=== PATIENT | female | born 1950 | race African-American/Black ===

== ENCOUNTER 2024-11-10 00:33 | Emergency (ER) | payer BC, OTHER, SELFPAY ==
[2024-11-10] VITALS (29 sets, daily range): BP systolic 134–164; BP diastolic 67–82; PULSE 88–117; RESP 14–30; TEMP 36.4–36.6; O2SAT 91–100
--- NOTE | ~2024-11-10 | XR_ITS ---
EXAMINATION: XR chest 1V DATE: 11/10/2024 02:27 INDICATION: Cough TECHNIQUE: frontal view of the chest was obtained. COMPARISON: Chest CT dated 11/10/2024 FINDINGS: The lungs are clear with no focal airspace opacities, pulmonary edema, pleural effusion or pneumothor ax. The cardiomediastinal silhouette is normal. IMPRESSION: 1. No acute cardiopulmonary disease. Reviewed, dictated and finalized at location A.
--- NOTE | ~2024-11-10 | CT_ITS ---
EXAMINATION: CT diagnostic chest wo con DATE: 11/10/2024 05:04 INDICATION: shortness of breath. COUGH X 1 DAY. TECHNIQUE: Computed tomography (CT) of the chest was performed without intravenous contrast. Addition al 3D reconstructions utilizing coronal maximum intensity projection (MIP) were performed. Automated exposure control and iterative reconstruction technique were employed. The dose-length product was 17 3.12 mGy-cm. COMPARISON: None FINDINGS: There is mild bronchial wall thickening which could be seen with bronchitis or reactive airway diseas e/asthma. Mild discoid atelectasis at the anterobasilar right lower lobe. No pneumonia, pulmonary mimi ma, pleural effusion or pneumothorax. 4 mm likely intrafissural lymph node along the right minor fiss ure. Small calcified right upper lobe nodule consistent with old granulomatous disease. There is diff use mild wall thickening of the esophagus which could be seen with esophagitis. No pathologically enl arged thoracic lymphadenopathy. Visualized upper abdomen is unremarkable. Moderate to severe thoracic spondylosis. IMPRESSION: 1. Diffuse mild bronchial wall thickening which could be seen with bronchitis or reactive airway dise ase/asthma without pneumonia. 2. Diffuse mild wall thickening of the esophagus which could be seen with esophagitis such as in the setting of reflux. Reviewed, dictated and finalized at location A. IMPRESSION: 1. Diffuse mild bronchial wall thickening which could be seen with bronchitis o r reactive airway disease/asthma without pneumonia. 2. Diffuse mild wall thickening of the esophagus which could be seen with esoph agitis such as in the setting of reflux.
--- NOTE | 2024-11-10 00:40 | ECG_ITS ---
Test Date: 2024-11-10 00:53:19 Measurements Intervals [place] Rate: 113 P: 64 NM: 132 QRS: 98 QRSD: 100 T: 45 QT: 348 QTc: 478 Interpretive Statements SINUS TACHYCARDIA RIGHT AXIS DEVIATION CANNOT R/O SEPTAL INFARCT, AGE INDETERMINATE BORDERLINE ST-T WAVE ABNORMALITY- INFERIOR LEADS BASELINE ARTIFACT- AVR, AVL, AVF ABNORMAL ECG No previous ECG available for comparison Electronically Signed On 11-10-2024 07:27:35 CDT by Luis Miguel Hoyt D.O.
--- NOTE | 2024-11-10 00:44 | ED.SOB ---
HPI - SOB/Dyspnea General Chief Complaint: Shortness of Breath/Dyspnea Stated Complaint: shortness of breathe Time Seen by Provider: 11/10/24 00:39 Source: patient Mode of arrival: EMS Limitations: no limitations History of Present Illness HPI Narrative: Patient is a 74-year-old female with acute onset shortness of breath and respiratory distress at the nursing facility this evening. Patient has COPD. She has been having a productive cough and some phlegm. Pneumonia is also considered. she was hypoxic at the nursing facility. EMS brought patient to ER. MD elicited complaint: shortness of breath, cough, pain with inspiration and chest pain Pertinent past history: COPD Onset (ago): day(s) ( One) Context: other ( patient with acute onset shortness of breath and respiratory distress at care home) Timing: constant Severity: moderate Exacerbating factors: coughing Relieving factors: nothing Known history of: COPD, asthma and congestive heart failure Associated symptoms: denies other symptoms Treatment prior to arrival: oxygen and bronchodilator Related Data Allergies Allergy/AdvReac Type Severity Reaction Status Date / Time acetaminophen Allergy Unknown Unknown Verified 11/10/24 02:42 hydrocodone Allergy Unknown Unknown Verified 11/10/24 02:42 morphine Allergy Unknown Unknown Verified 11/10/24 02:42 tetracycline Allergy Unknown Unknown Verified 11/10/24 02:42 Review of Systems Review of Systems: All systems reviewed & are unremarkable except as noted in HPI and below Constitutional: Constitutional: Reports no additional constitutional complaints Eyes: Eyes: Reports no additional eye complaints ENT: Reports system reviewed and no additional complaints, except as documented Cardiovascular: Cardiovascular: Reports no additional cardiovascular complaints Respiratory: Respiratory: Reports no additional respiratory complaints Gastrointestinal: Gastrointestinal: Reports no additional gastrointestinal complaints Genitourinary: Genitourinary: Reports no additional female genitourinary complaints Musculoskeletal: Musculoskeletal: Reports no additional musculoskeletal complaints Integumentary/Breasts: Skin/Breast: Reports system reviewed and no additional complaints, except as docu Neurologic: Reports system reviewed and no additional complaints, except as documented Psychiatric: Psychiatric: Reports no additional psychiatric complaints Endocrine: Endocrine: Reports no additional endocrine complaints Hematologic/Lymphatic: Hematologic/Lymphatic: Reports no additional hematologic/lymphatic complaints Allergic/Immunologic: Allergic/Immunologic: Reports no additional allergic/immunologic complaints [facility] Social History Social History (Updated 11/10/24 @ 04:25 by Shelby L. Thakkar, RN) Smoking status: Former smoker Tobacco type: cigarettes Substance use: former Substance use type: crack/cocaine and IV drugs Exam Const: General: ill appearing Nutritional Appearance: well nourished Orientation/consciousness: patient oriented x3 HENMT: Head: normal to inspection Ears: external ears normal Face/Nose/Sinus: Normal external nose present Eyes: Conjunctivae: conjunctivae normal Pupils: Equal, round and reactive pupils present EOM: EOMs intact bilaterally Neck: Neck: normal visual inspection Chest: Chest palpation & inspection: normal inspection of the chest Resp: Effort & Inspection: abnormal respiratory effort, labored and tachypneic Auscultation: not clear to auscultation bilaterally, rhonchi ( Bilateral) and diminished lung sounds Cardio: Rate: regular rate Rhythm: regular rhythm Heart sounds: no murmurs GI: Inspection: non-distended GI Palp: Yes Soft to palpation and No Tenderness to palpation present (GI) Auscultation: normal bowel sounds : General: Yes bladder normal to palpation Back/Spine/Pelvis: Back: no CVA tenderness Skin: General skin exam: normal color Rashes: no rashes Wounds: no wounds Neuro: General: moves all extremities, no meningeal signs, no focal motor deficits and CN's II-XI intact bilaterally Cranial nerves: Yes Nystagmus not present Speech: normal speech Extrem: General: normal to inspection Psych: Mental Status: mental status grossly normal Affect: normal affect Attitude: cooperative Course Vital Signs Vital signs: Vital Signs Pulse Rate 114 H 11/10/24 00:39 Oxygen Delivery Room Air 11/10/24 00:39 Temperature 36.4 C 11/10/24 06:15 Pulse Rate 96 11/10/24 06:16 Respiratory Rate 19 11/10/24 06:16 Blood Pressure 164/82 H 11/10/24 06:15 Pulse Oximetry 98 11/10/24 06:16 Oxygen Delivery Room Air 11/10/24 06:15 MDM - SOB/Dyspnea MDM Narrative Medical decision making narrative: Patient is 74-year-old female with acute onset of shortness of breath or respiratory distress at the nursing facility this evening. We will do a cardiopulmonary workup at this time. Lab Data Attestation: I reviewed the patient's lab results. 11/10/24 03:00 11/10/24 03:00 Labs: Lab Results 11/10/24 11/10/24 11/10/24 Range/Units 00:38 00:43 03:00 WBC 9.3 (4.8-10.8) K/mm3 RBC 4.09 L (4.20-5.40) M/mm3 Hgb 10.9 L (11.7-13.8) g/dL Hct 35.1 (35.0-42.0) % MCV 85.8 (78.0-102.0) fL MCH 26.7 L (27.0-31.0) pg MCHC 31.1 L (32-36) g/dL RDW 15.9 H (11.6-14.4) % Plt Count 216 (150-420) K/mm3 MPV 11.5 (9.2-11.8) fl Immature Gran % (Auto) 0.3 H (0.0-0.0) % Neut % (Auto) 57.0 (50.0-70.0) % Lymph % (Auto) 33.8 (18.0-42.0) % [place] % (Auto) 7.8 (2.0-11.0) % Eos % (Auto) 0.8 L (1.0-6.0) % Baso % (Auto) 0.3 (0.0-1.0) % Lymph # (Auto) 3.15 (1.10-4.50) K/mm3 [place] # (Auto) 0.73 (0.10-0.90) K/mm3 Eos # (Auto) 0.07 (0.02-0.50) K/mm3 Baso # (Auto) 0.03 (0.00-0.10) K/mm3 Abs Immat Gran (auto) 0.03 H (0.00-0.00) K/mm3 Absolute Neuts (auto) 5.31 (1.70-7.20) K/mm3 Absolute Nucleated RBC 0.00 (0.00-0.00) K/mm3 Nucleated RBC % 0.0 (0-0.0) % Sodium 141 (137-145) mmol/L Potassium 4.2 (3.4-5.0) mmol/L Chloride 102 (98-107) mmol/L Carbon Dioxide 31 H (22-30) mmol/L Anion Gap 8 (4-12) mmol/L BUN 13 (7-17) mg/dL Creatinine 0.59 L (0.7-1.0) mg/dL Estim Creat Clear Calc Not Reportable Estimated GFR > 60 (59 - ) Glucose 140 H (65-110) mg/dL POC Capillary Glucose 177 H (65-105) mg/dl Calculated Osmolality 294 (285-295) mOsm/kg Lactic Acid 1.6 (0.4-2.0) mmol/L Calcium 9.9 (8.4-10.2) mg/dL Total Bilirubin 0.7 (0.2-1.3) mg/dL AST 26 (14-36) U/L ALT 12 (6-35) U/L Alkaline Phosphatase 100 (38-126) U/L Troponin I < 0.012 (0.000-0.034) ng/mL NT-Pro-B Natriuret Pep 37 (19.9-100) pg/mL Total Protein 7.3 (6.3-8.2) g/dL Albumin 4.2 (3.5-5.1) g/dL Urine Color (Yellow) Urine Appearance (Clear) Urine pH (5.0-8.0) Ur Specific [place] (1.010-1.020) Urine Protein (Negative) Urine Glucose (UA) (Negative) Urine Ketones (Negative) Ur Blood (Man) (Negative) Urine Nitrate (Negative) Urine Bilirubin (Negative) Urine Urobilinogen (0.2-1.0) mg/dL Leukocyte Esterase Rfl (Negative) NARCISA/UL Influenza A (RT-PCR) Negative (Negative) Influenza B (RT-PCR) Negative (Negative) RSV (RT-PCR) Negative (Negative) SARS-CoV-2 RNA (RT-PCR) Negative (Negative) 11/10/24 Range/Units 04:37 WBC (4.8-10.8) K/mm3 RBC (4.20-5.40) M/mm3 Hgb (11.7-13.8) g/dL Hct (35.0-42.0) % MCV (78.0-102.0) fL MCH (27.0-31.0) pg MCHC (32-36) g/dL RDW (11.6-14.4) % Plt Count (150-420) K/mm3 MPV (9.2-11.8) fl Immature Gran % (Auto) (0.0-0.0) % Neut % (Auto) (50.0-70.0) % Lymph % (Auto) (18.0-42.0) % [place] % (Auto) (2.0-11.0) % Eos % (Auto) (1.0-6.0) % Baso % (Auto) (0.0-1.0) % Lymph # (Auto) (1.10-4.50) K/mm3 [place] # (Auto) (0.10-0.90) K/mm3 Eos # (Auto) (0.02-0.50) K/mm3 Baso # (Auto) (0.00-0.10) K/mm3 Abs Immat Gran (auto) (0.00-0.00) K/mm3 Absolute Neuts (auto) (1.70-7.20) K/mm3 Absolute Nucleated RBC (0.00-0.00) K/mm3 Nucleated RBC % (0-0.0) % Sodium (137-145) mmol/L Potassium (3.4-5.0) mmol/L Chloride (98-107) mmol/L Carbon Dioxide (22-30) mmol/L Anion Gap (4-12) mmol/L BUN (7-17) mg/dL Creatinine (0.7-1.0) mg/dL Estim Creat Clear Calc Estimated GFR (59 - ) Glucose (65-110) mg/dL POC Capillary Glucose (65-105) mg/dl Calculated Osmolality (285-295) mOsm/kg Lactic Acid (0.4-2.0) mmol/L Calcium (8.4-10.2) mg/dL Total Bilirubin (0.2-1.3) mg/dL AST (14-36) U/L ALT (6-35) U/L Alkaline Phosphatase (38-126) U/L Troponin I (0.000-0.034) ng/mL NT-Pro-B Natriuret Pep (19.9-100) pg/mL Total Protein (6.3-8.2) g/dL Albumin (3.5-5.1) g/dL Urine Color Light yellow (Yellow) Urine Appearance Clear (Clear) Urine pH 6.0 (5.0-8.0) Ur Specific [place] <= 1.005 L (1.010-1.020) Urine Protein Negative (Negative) Urine Glucose (UA) Negative (Negative) Urine Ketones Negative (Negative) Ur Blood (Man) Negative (Negative) Urine Nitrate Negative (Negative) Urine Bilirubin Negative (Negative) Urine Urobilinogen 0.2 (0.2-1.0) mg/dL Leukocyte Esterase Rfl Negative (Negative) NARCISA/UL Influenza A (RT-PCR) (Negative) Influenza B (RT-PCR) (Negative) RSV (RT-PCR) (Negative) SARS-CoV-2 RNA (RT-PCR) (Negative) ABG Data ABG results: 11/10/24 02:13 Puncture Site Left radial ABG pH 7.41 ABG pCO2 44.5 ABG pO2 63.2 L ABG HCO3 27.6 ABG O2 Saturation 90.3 L ABG Base Excess 2.5 H Oxyhemoglobin 89.5 L O2 Delivery Device Room air O2 Liters/Min 0.0 Attestation: I personally reviewed and interpreted this ABG as follows: Interpretation: no major concerns except mild hypoxia pain and hypoxemia Imaging Data Attestation: I personally reviewed and interpreted this imaging study as follows: Radiologist's impression: CT scan of the chest was negative for acute disease besides some possible small airway disease ECG Data EKG #1: Attestation: I personally reviewed and interpreted this ECG as follows: ECG completion date: 11/10/24 ECG completion time: 05:14 EKG Interpretation: tachycardia, sinus rhythm, no ectopy, non-specific ST changes, normal QRS, normal QT and right axis Discharge Plan Discharge Clinical Impression: Acute bacterial bronchitis, Acute exacerbation of chronic obstructive pulmonary disease Patient Disposition: Home Condition: Stable Instructions: Antibiotic Form, Acute Bronchitis (ED), COPD (Chronic Obstructive Pulmonary Disease) (ED) Patient Language: [place] Prescriptions: New levofloxacin 500 mg tablet 500 mg PO DAILY Qty: 7 0RF prednisone 20 mg tablet 40 mg PO DAILY 3 Days Qty: 6 0RF Follow-up/Referrals: Chad Hernandez MD [Primary Care Provider] - Time of Disposition: 06:47
--- NOTE | 2024-11-10 00:58 | PC.NURSE ---
covid swab sent to lab
--- NOTE | 2024-11-10 02:00 | PC.NURSE ---
This RN spoke with ERP about patient being a difficult stick and being stuck multiple times by multiple staff. Patient stated that anytime she goes into the hospital she generally has to be stuck multiple times or ends up with an US guided IV or PICC line. This RN spoke with patient about the amount of time being stuck, patient stated that it was fine, to do what was necessary to get labs and help her feel better. This RN stated further that we try to limit the amount of sticks for patient comfort, however patient still insisted we do what we needed to do to help her, she understands. Lab also at bedside, has stuck multiple times before coming to address RN about being unable to obtain labs. This RN spoke with patient about coming back in later with ERP to look for another site to draw or place IV per US.
[2024-11-10 02:11] LABS: HCO3 ABG 27.6 mmol/L (23-29); Oxygen Saturation ABG 90.3 % (95-97); PCO2 ABG 44.5 mmHg (35-45); PO2 ABG 63.2 mmHg (75-85)
[2024-11-10 02:16] LABS: Modified Allen's Test Unable to perform; Site Drawn LEFT RADIAL
[2024-11-10 02:17] LABS: Liters per Minute 0.0 LPM
[2024-11-10] MEDS: IPRATROPIUM 0.5 MG/ALBUTEROL SULFATE 2.5 MG AMPUL.NEB 3 ML INHALATION (03:00)
[2024-11-10 03:02] LABS: Influenza A QL RT-PCR Negative (Negative); Influenza B QL RT-PCR Negative (Negative); RSV RNA, RT-PCR Negative (Negative); SARS-CoV-2 RNA PCR Negative (Negative)
[2024-11-10] MEDS: PIPERACILLIN/TAZOBACTAM SOD 3.375 GM in SODIUM CHLORIDE 0.9% IV 50 ML 100 ML IVPB (03:13)
[2024-11-10] MEDS: FUROSEMIDE INJ 20 MG/2 ML VIAL 10 MG IV PUSH (03:13)
[2024-11-10 03:43] LABS: Alanine Aminotransferase 12 U/L (6-35); Albumin Level 4.2 g/dL (3.5-5.1); Alkaline Phosphatase 100 U/L (38-126); Anion Gap 8 mmol/L (4-12); Aspartate Amino Transferase 26 U/L (14-36); Bilirubin,Total 0.7 mg/dL (0.2-1.3); Blood Urea Nitrogen 13 mg/dL (7-17); Calcium 9.9 mg/dL (8.4-10.2); Carbon Dioxide 31 mmol/L (22-30); Chloride 102 mmol/L (98-107); Estimated Glomerular Filt Rate > 60; Glucose 140 mg/dL (65-110); Osmolality Calculated 294 mOsm/kg (285-295); Potassium 4.2 mmol/L (3.4-5.0); Sodium 141 mmol/L (137-145); Total Protein 7.3 g/dL (6.3-8.2)
[2024-11-10 03:45] LABS: Hematocrit 35.1 % (35.0-42.0); Hemoglobin 10.9 g/dL (11.7-13.8); Immature Granulocyte Percent A 0.3 % (0.0-0.0); Lymphocytes Absolute Auto 3.15 K/mm3 (1.10-4.50); Mean Corpuscular HGB Conc 31.1 g/dL (32-36); Mean Corpuscular Hemoglobin 26.7 pg (27.0-31.0); Mean Corpuscular Volume 85.8 fL (78.0-102.0); Nucleated Red Blood Cells Absolute Auto 0.00 K/mm3 (0.00-0.00); Nucleated Red Blood Cells Perc 0.0 % (0-0.0); Platelet Count Result 216 K/mm3 (150-420); Red Blood Count 4.09 M/mm3 (4.20-5.40); White Blood Count 9.3 K/mm3 (4.8-10.8)
[2024-11-10 03:52] LABS: Troponin I < 0.012 ng/mL (0.000-0.034)
[2024-11-10 04:02] LABS: NT Pro B Type Natriuretic Pept 37 pg/mL (19.9-100)
[2024-11-10 04:45] LABS: Add Urine Microscopic? NO; Appearance Urine Clear (Clear); Glucose Urine UA Negative (Negative); Leukocyte Esterase Ur Negative LEU/UL (Negative); Nitrate Urine Negative (Negative); Specific Grav Ur <= 1.005 (1.010-1.020)
--- NOTE | 2024-11-10 06:02 | PC.NURSE ---
updated long term on plan of care and prognosis of patient at this time.
--- NOTE | 2024-11-13 13:17 | PC.NURSE ---
preliminary blood cultures x2 reviewed. no growth in 24 hours
--- NOTE | 2024-11-17 13:45 | PC.NURSE ---
final blood cultures x2 reviewed. no growth in five days. no change in plan of care.
== END 2024-11-10 07:20 | disposition home or self-care (01) ==
PROVIDERS: Emergency Provider Emergency Medicine; PCP Family Medicine
DX: J20.9 Acute bronchitis, unspecified (principal); J44.1 Chronic obstructive pulmonary disease with (acute) exacerbation; J44.9 Chronic obstructive pulmonary disease, unspecified; Z87.891 Personal history of nicotine dependence; Z20.822 Contact with and (suspected) exposure to COVID-19
CPT/HCPCS: 36415; 36600; 71045; 71250; 80053; 81003; 82805; 82948; 83605; 83880; 84484; 85025; 87040; 87637; 93005; 96365; 96375; 99284; J1938; J2543; J2919

== ENCOUNTER 2024-12-13 13:11 | Emergency (ER) | payer BC, MEDICAID, SELFPAY ==
--- NOTE | ~2024-12-13 | CT_ITS ---
EXAMINATION: CT cervical spine wo con DATE: 12/13/2024 13:56 INDICATION: Fall TECHNIQUE: Computed tomography (CT) of the cervical spine was performed without intravenous contrast. Automated exposure control and iterative reconstruction technique were employed. The dose-length product was 524.78 mGy-cm. COMPARISON: None FINDINGS: Draining of the normal cervical lordosis. Vertebral body heights are normal. No fracture. Multilevel disc height loss, moderate severity at C6-C7, T3-T4 and T4- T5, mild to moderate disc height loss at C5-C6 and mild disc height loss at C2- C3, C4-C5 and C7-T1 through T2-T3. Disc bulge contributing to mild central canal stenosis at C6-C7. Severe uncovertebral osteoarthritis on the right at and C6-C7 with mild uncovertebral osteoarthritis throughout the majority the remaining cervical spine. Moderate facet osteoarthritis on the left at C2-C3, on the right at C6-C7 and bilaterally at C7-T1. Mild to moderate neural foraminal stenosis at C6-7 and mild neural foraminal stenosis on the left at C6-C7, bilaterally at C5- C6 and C7-T1. Atherosclerotic calcifications at the bilateral carotid bulbs which appears likely hemodynamically significant on the right. Cervical soft tissues are otherwise unremarkable. Respiratory motion in the upper lungs which appear otherwise clear. IMPRESSION: 1. Mild to moderate cervical spondylosis with no acute osseous abnormality. 2. Atherosclerotic calcifications at the bilateral carotid bulbs which appears likely hemodynamically significant on the right. Reviewed, dictated and finalized at location A.
--- NOTE | ~2024-12-13 | XR_ITS ---
EXAMINATION: XR chest 1V portable DATE: 12/13/2024 13:56 INDICATION: Weakness TECHNIQUE: frontal view of the chest was obtained. COMPARISON: Chest radiograph dated 11/10/24 FINDINGS: The lungs are clear with no focal airspace opacities, pulmonary edema, pleural effusion or pneumothorax. Cardiomediastinal silhouette is normal. Moderate degenerative skeletal changes at the bilateral shoulders with likely distal left clavicle resection. IMPRESSION: 1. No acute cardiopulmonary disease. Reviewed, dictated and finalized at location A.
--- NOTE | ~2024-12-13 | CT_ITS ---
CT HEAD NON-CONTRAST Clinical History: fall Comparison: None Technique: Unenhanced axial images skull base to vertex Coronal, sagittal reformats CT images acquired with automatic exposure control for dose reduction DLP: 681 mGy-cm Findings: Bilateral cerebellar and occipital encephalomalacia. Right thalamic and left basal ganglia lacune. Sulci, ventricles: Unremarkable. No intracerebral hemorrhage. No evidence acute territorial infarct. No mass effect, midline shift. Bony calvarium intact. Visualized paranasal sinuses: Clear. Mastoid air cells: Clear. IMPRESSION: 1. No acute intracranial findings. 2. Additional findings as above. Reviewed, dictated and finalized at location R.
[2024-12-13 13:20] VITALS: BP 182/79; PULSE 87; RESP 18; TEMP 36.7; O2SAT 97
[2024-12-13 14:15] VITALS: BP 168/85; PULSE 85; RESP 20; O2SAT 97
--- NOTE | 2024-12-13 14:34 | PC.NURSE ---
On 12/13/24, the student, [SHAHZAD BEACH ], provided care and completed Prelert documentation on this patient. I have reviewed the student's documentation and agree with the findings.
[2024-12-13 14:37] LABS: Add Urine Microscopic? NO; Appearance Urine Clear (Clear); Glucose Urine UA Negative (Negative); Leukocyte Esterase Ur Negative LEU/UL (Negative); Nitrate Urine Negative (Negative); Specific Grav Ur 1.010 (1.010-1.020)
--- NOTE | 2024-12-13 14:38 | PC.NURSE ---
PT REFUSED LABS PT DOES NOT WANT ANYMORE STICKS
--- NOTE | 2024-12-13 14:56 | ED_ITS ---
HPI - Fall General Chief Complaint: Fall Stated Complaint: Fall Time Seen by Provider: 12/13/24 13:19 Source: patient and EMS Mode of arrival: EMS History of Present Illness HPI Narrative: this is a 74-year-old female presents from the half-way after she had a ground level fall, had a fall earlier and was some worked up at [facility] and sent back to the half-way, subsequently had another fall and presents here via EMS with some possible head injury neck injury. No other symptoms patient is awake alert with some no chest pain no shortness of breath no abdominal pain no fever chills no nausea vomiting. complaint: fall Onset (ago): hour(s) Fall from: standing Place fall occurred: half-way/SNF Loss of consciousness: unsure Prolonged down time: no Symptoms prior to fall: none Severity: mild Related Data Allergies Allergy/AdvReac Type Severity Reaction Status Date / Time acetaminophen Allergy Unknown Unknown Verified 11/10/24 02:42 hydrocodone Allergy Unknown Unknown Verified 11/10/24 02:42 morphine Allergy Unknown Unknown Verified 11/10/24 02:42 tetracycline Allergy Unknown Unknown Verified 11/10/24 02:42 Review of Systems Review of Systems: All systems reviewed & are unremarkable except as noted in HPI and below PMFSH Social History Social History Smoking status: Former smoker Tobacco type: cigarettes Substance use: former Substance use type: crack/cocaine and IV drugs Exam Const: General: healthy appearing and no acute distress Nutritional Appear ance: well nourished Orientation/consciousness: patient oriented x3 Eyes: Conjunctivae: conjunctivae normal Pupils: Equal, round and reactive pupils present EOM: EOMs intact bilaterally Neck: Neck: normal visual inspection, no lymphadenopathy and no meningeal signs Chest: Chest palpation & inspection: normal inspection of the chest Resp: Effort & Inspection: normal respiratory effort Auscultation: clear to auscultation bilaterally Cardio: Rhythm: regular rhythm GI: GI Palp: Yes Soft to palpation Auscultation: normal bowel sounds : General: Yes bladder normal to palpation Urinary Catheter: Urinary Catheter: patent and draining Skin: General skin exam: normal color Rashes: no rashes Neuro: General: patient oriented x3, moves all extremities, no meningeal signs, no focal motor deficits and CN's II-XI intact bilaterally Cranial nerves: Yes Nystagmus not present Speech: normal speech Extrem: General: normal to inspection, no clubbing, cyanosis or edema and no pedal edema Course Course Emergency Course: Patient had a CT scan of the brain which showed no acute abnormality CT scan of cervical spine with no acute abnormality chest x-ray was with no acute abnormalities patient refused blood work urinalysis did not show any evidence of urinary tract infection. Vital Signs Vital signs: Vital Signs Temperature 36.7 C 12/13/24 13:20 Pulse Rate 87 12/13/24 13:20 Respiratory Rate 18 12/13/24 13:20 Blood Pressure 182/79 H 12/13/24 13:20 Pulse Oximetry 97 12/13/24 13:20 Oxygen Delivery Room Air 12/13/24 13:20 Temperature 36.7 C 12/13/24 13:20 Pulse Rate 87 12/13/24 13:20 Respiratory Rate 18 12/13/24 13:20 Blood Pressure 182/79 H 12/13/24 13:20 Pulse Oximetry 97 12/13/24 13:20 Oxygen Delivery Room Air 12/13/24 13:20 MDM - Fall Lab Data Labs: Lab Results 12/13/24 Range/Units 14:34 Urine Color Light yellow (Yellow) Urine Appearance Clear (Clear) Urine pH 7.5 (5.0-8.0) Ur Specific [place] 1.010 (1.010-1.020) Urine Protein Negative (Negative) Urine Glucose (UA) Negative (Negative) Urine Ketones Negative (Negative) Ur Blood (Man) Negative (Negative) Urine Nitrate Negative (Negative) Urine Bilirubin Negative (Negative) Urine Urobilinogen 0.2 (0.2-1.0) mg/dL Leukocyte Esterase Rfl Negative (Negative) NARCISA/UL Critical Care Time Critical Care Time Critical Care Time: No Discharge Plan Discharge Clinical Impression: At risk for falls Cervical strain Qualifiers: Encounter type: initial encounter Qualified Code(s): S16.1XXA - Strain of muscle, fascia and tendon at neck level, initial encounter Patient Disposition: [facility] Living Condition: Stable Instructions: Antibiotic Form, Muscle Strain (ED), Fall Prevention (ED) Additional Instructions: advised patient to continue current medical regimen close observation by half-way staff and follow with primary within the next 3 to 5 days for further evaluation treatme Patient Language: Icelandic Prescriptions: No Action levofloxacin 500 mg tablet 500 mg PO DAILY Qty: 7 0RF prednisone 20 mg tablet 40 mg PO DAILY 3 Days Qty: 6 0RF Follow-up/Referrals: Quintin,Mary Baumann. [Primary Care Provider]
[2024-12-13 15:30] VITALS: BP 172/75; PULSE 82; RESP 20; O2SAT 98
== END 2024-12-13 15:52 ==
PROVIDERS: Emergency Provider Emergency Medicine; PCP Internal Medicine
DX: S16.1XXA Strain of muscle, fascia and tendon at neck level, initial encounter (principal); Z87.891 Personal history of nicotine dependence; W19.XXXA Unspecified fall, initial encounter
CPT/HCPCS: 70450; 71045; 72125; 81003; 99284

== ENCOUNTER 2024-12-14 12:04 | Outpatient (CLI) | payer BC, MEDICAID, SELFPAY ==
--- NOTE | ~2024-12-14 | XR_ITS ---
EXAMINATION: XR toe 1st RT min 2V, 12/14/2024 12:17 CDT HISTORY: PAIN TO RIGHT GREAT TOE COMPARISON: No comparisons available. Findings: No acute fracture or malalignment. Moderate degenerative changes Soft tissues unremarkable. Impression: No acute fracture or malalignment. Reviewed, dictated and finalized at location A. Impression: No acute fracture or malalignment.
== END 2024-12-14 12:05 | disposition home or self-care (01) ==
PROVIDERS: PCP Internal Medicine; Visit Provider Internal Medicine
DX: M79.674 Pain in right toe(s) (principal)
CPT/HCPCS: 73660

== ENCOUNTER 2024-12-20 20:06 | Emergency (ER) | payer BC, MEDICAID, SELFPAY ==
--- NOTE | ~2024-12-20 | CT_ITS ---
EXAMINATION: CT brain wo con DATE: 12/20/2024 20:47 INDICATION: Status post fall. TECHNIQUE: Computed tomography (CT) of the head was performed without intravenous contrast. The dose-length product was 1210.67 mGy-cm. Automated exposure control and iterative reconstruction technique were employed. 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 Chronic left lacunar infarctions. Study limited by motion artifact. No acute intracranial hemorrhage, infarction, mass or mass effect. Chronic right thalamic infarct. Paranasal sinuses and mastoids are pneumatized. No depressed skull fractures. No ventriculomegaly or midline shift. Basilar cisterns are patent. No depressed skull fractures. IMPRESSION: 1. No acute abnormality. Reviewed, dictated and finalized at location O. IMPRESSION: 1. No acute abnormality.
[2024-12-20 20:12] VITALS: BP 159/81; PULSE 87; RESP 18; TEMP 36.7; O2SAT 96
--- NOTE | 2024-12-20 20:36 | ED_ITS ---
HPI - Fall General Chief Complaint: Fall Stated Complaint: knee pain Time Seen by Provider: 12/20/24 20:18 Source: patient and EMS Mode of arrival: EMS Limitations: physical limitation History of Present Illness HPI Narrative: this is a 74-year-old female with history of dementia COPD that presents from alf after she had a fall out of her wheelchair striking the side of her head with no loss of consciousness currently at her baseline no neurological deficits no nausea vomiting no bleeding no scalp lacerations no hematoma no other injuries noted. complaint: fall Onset (ago): hour(s) Fall from: wheelchair Fall witnessed: yes, by living facility staff Loss of consciousness: none Prolonged down time: no Severity: mild Related Data Allergies Allergy/AdvReac Type Severity Reaction Status Date / Time acetaminophen Allergy Unknown Unknown Verified 11/10/24 02:42 hydrocodone Allergy Unknown Unknown Verified 11/10/24 02:42 morphine Allergy Unknown Unknown Verified 11/10/24 02:42 tetracycline Allergy Unknown Unknown Verified 11/10/24 02:42 [facility] Social History Social History Smoking status: Former smoker Tobacco type: cigarettes Substance use: former Substance use type: crack/cocaine and IV drugs Exam Const: General: no acute distress and alert Nutritional Appearance: obese Limitations: behavioral limitations and physical limitations HENMT: Head: normal to inspection Ears: external ears normal Face and sinus: normal facial exam Eyes: Conjunctivae: conjunctivae normal EOM: EOMs intact bilaterally Neck: Neck: normal visual inspection, no lymphadenopathy and no meningeal signs Chest: Chest palpation & inspection: normal inspection of the chest Resp: Effort & Inspection: normal respiratory effort Auscultation: clear to auscultation bilaterally Cardio: Rate: regular rate Rhythm: regular rhythm GI: GI Palp: Yes Soft to palpation Skin: General skin exam: normal color Neuro: General: patient oriented x3, moves all extremities, no meningeal signs and no focal motor deficits Cranial nerves: Yes Nystagmus not present Extrem: General: normal to inspection and no clubbing, cyanosis or edema Course Course Emergency Course: CT scan of the brain was performed and reviewed and negative with no acute intracranial abnormalities. Vital Signs Vital signs: Vital Signs Temperature 36.7 C 12/20/24 20:12 Pulse Rate 87 12/20/24 20:12 Respiratory Rate 18 12/20/24 20:12 Blood Pressure 159/81 H 12/20/24 20:12 Pulse Oximetry 96 12/20/24 20:12 Oxygen Delivery Room Air 12/20/24 20:12 Temperature 36.7 C 12/20/24 20:12 Pulse Rate 87 12/20/24 20:12 Respiratory Rate 18 12/20/24 20:12 Blood Pressure 159/81 H 12/20/24 20:12 Pulse Oximetry 96 12/20/24 20:12 Oxygen Delivery Room Air 12/20/24 20:12 Critical Care Time Critical Care Time Critical Care Time: No Discharge Plan Discharge Clinical Impression: Fall Qualifiers: Encounter type: initial encounter Qualified Code(s): W19.XXXA - Unspecified fall, initial encounter Patient Disposition: NH Longterm/Asst Living Condition: Stable Instructions: Antibiotic Form, Head Injury (ED), Fall Prevention (ED) Additional Instructions: advised fall prevention, and follow with primary within a week further evaluation treatment. Patient Language: Egyptian Prescriptions: No Action levofloxacin 500 mg tablet 500 mg PO DAILY Qty: 7 0RF prednisone 20 mg tablet 40 mg PO DAILY 3 Days Qty: 6 0RF Follow-up/Referrals: Quintin,Winston Baumann [Primary Care Provider]
--- NOTE | 2024-12-20 21:15 | PC.NURSE ---
CALL PLACED TO [facility]. NO ANSWER
--- NOTE | 2024-12-20 21:18 | PC.NURSE ---
REPEAT CALL PLACED TO [facility]. NO ANSWER
--- NOTE | 2024-12-20 21:24 | PC.NURSE ---
REPORT GIVEN TO NURSE PHILLIPS AT [facility]. SOMEONE WILL BE OVER WITH A WHEEL CHAIR TO TAKE HER BACK TO FACILITY
--- NOTE | 2024-12-20 21:44 | PC.NURSE ---
CHECKED PATIENT DEPENDS TO MAKE SURE SHE WAS DRY BEFORE GOING BACK TO GROUP HOME.
--- NOTE | 2024-12-20 22:29 | PC.NURSE ---
PATIENT RESTING QUIETLY ON STRETCHER. DENIES ANY PAIN. CONTINUE TO WAIT FOR INTERMEDIATE STAFF TO COME AND RESOURCE AGENT PATIENT
--- NOTE | 2024-12-20 22:34 | PC.NURSE ---
SPOKE WITH NURSE, ALAN, AT [facility]. SHE WILL SEND SOMEONE TO GET PATIENT
[2024-12-20 22:45] VITALS: BP 160/80; PULSE 84; RESP 16; O2SAT 94
== END 2024-12-20 22:45 ==
PROVIDERS: Emergency Provider Emergency Medicine; PCP Internal Medicine
DX: M25.569 Pain in unspecified knee (principal); S09.90XA Unspecified injury of head, initial encounter; F03.90 Unspecified dementia, unspecified severity, without behavioral disturbance, psychotic disturbance, mood disturbance, and anxiety; J44.9 Chronic obstructive pulmonary disease, unspecified; Z87.891 Personal history of nicotine dependence; W05.0XXA Fall from non-moving wheelchair, initial encounter
CPT/HCPCS: 70450; 99284

== ENCOUNTER 2025-01-02 20:17 | Emergency (ER) | payer BC, MEDICAID, SELFPAY ==
--- NOTE | ~2025-01-02 | CT_ITS ---
EXAMINATION: CT brain wo con DATE: 01/02/2025 21:18 INDICATION: Fall with head injury TECHNIQUE: Computed tomography (CT) of the head was performed without intravenous contrast. Sagittal and coronal reconstructions were performed. The mA was adjusted according to patient size. Iterative reconstruction technique was employed. The dose-length product was 681.00 mGy-cm. COMPARISON: head CT dated 12/20/2024 FINDINGS: No fracture. Stable regions of encephalomalacia consistent with chronic infarcts in the bilateral occipital lobes and at the cephalad aspect of the bilateral cerebellar hemispheres. Additional small old lacunar infarcts at the bilateral thalami and 2 in the left basal ganglia. No acute intracranial hemorrhage, acute infarction or abnormal extra axial fluid collection. There is mild scattered white matter hypoattenuation consistent with chronic small vessel ischemic disease. Ventricles are normal and symmetric. No mass/mass effect. . The orbits, paranasal sinuses and mastoid air cells are normal. IMPRESSION: 1. No fracture or acute intracranial process. 2. Stable appearance of chronic infarcts at the bilateral thalami, occipital lobes, cerebellar hemispheres and a couple additional small old lacunar infarcts at the left basal ganglia. Reviewed, dictated and finalized at location A. IMPRESSION: 1. No fracture or acute intracranial process. 2. Stable appearance of chronic infarcts at the bilateral thalami, occipital lo bes, cerebellar hemispheres and a couple additional small old lacunar infarcts at the left basal ganglia.
--- NOTE | ~2025-01-02 | CT_ITS ---
EXAMINATION: CT cervical spine wo con DATE: 01/02/2025 21:18 INDICATION: Fall TECHNIQUE: Computed tomography (CT) of the cervical spine was performed without intravenous contrast. Automated exposure control and iterative reconstruction technique were employed. The dose-length product was 573.09 mGy-cm. COMPARISON: 12/13/2024 FINDINGS: There is motion artifact limiting assessment below the level of T2. Straightening of the normal cervical lordosis. Vertebral body heights are normal. No fracture. Moderate disc height loss at C6-C7, mild to moderate disc height loss at C5-C6 and mild disc height loss at C2-C3 and C7-T1 through T2-T3. Disc bulge contributing to mild central canal stenosis at C6-C7. Severe uncovertebral osteoarthritis on the right at C6-C7 with mild uncovertebral osteoarthritis throughout the majority the remaining cervical spine. Moderate facet osteoarthritis on the left at C2-C3, on the right at C6-C7 and bilaterally at C7-T1. Mild to moderate neural foraminal stenosis at C6-7 and mild neural foraminal stenosis on the left at C6-C7, bilaterally at C5-C6 and C7-T1. Atherosclerotic calcifications at the bilateral carotid bulbs which appears likely hemodynamically significant on the right. Cervical soft tissues are otherwise unremarkable. Respiratory motion in the upper lungs which appear otherwise clear. IMPRESSION: 1. Mild to moderate cervical spondylosis with no acute osseous abnormality. 2. Atherosclerotic calcifications at the bilateral carotid bulbs which appears likely hemodynamically significant on the right. Reviewed, dictated and finalized at location A.
--- NOTE | 2025-01-02 20:23 | ED_ITS ---
HPI - Fall General Chief Complaint: Fall Stated Complaint: UNWITNESSED FALL Time Seen by Provider: 01/02/25 20:23 Source: patient Mode of arrival: ambulatory Limitations: no limitations History of Present Illness HPI Narrative: Patient is a 74-year-old female with a ground level fall at the nursing facility prior to arrival. complaint: fall Onset (ago): minute(s) (30) Fall from: standing and out of bed Fall witnessed: no Place fall occurred: home and group home/SNF Loss of consciousness: none Prolonged down time: no Symptoms prior to fall: none Context: tripped/slipped Location of injury: head Severity: mild Severity scale (1-10): 1 Quality: dull Associated symptoms (after fall): denies Related Data Allergies Allergy/AdvReac Type Severity Reaction Status Date / Time acetaminophen Allergy Unknown Unknown Verified 11/10/24 02:42 hydrocodone Allergy Unknown Unknown Verified 11/10/24 02:42 morphine Allergy Unknown Unknown Verified 11/10/24 02:42 tetracycline Allergy Unknown Unknown Verified 11/10/24 02:42 Review of Systems 2 Review of Systems: All systems reviewed & are unremarkable except as noted in HPI and below Constitutional: Constitutional: Reports no additional constitutional complaints Eyes: Eyes: Reports no additional eye complaints ENT: Reports system reviewed and no additional complaints, except as documented Cardiovascular: Cardiovascular: Reports no additional cardiovascular complaints Respiratory: Respiratory: Reports no additional respiratory complaints Gastrointestinal: Gastrointestinal: Reports no additional gastrointestinal complaints Genitourinary: Genitourinary: Reports no additional female genitourinary complaints Musculoskeletal: Musculoskeletal: Reports no additional musculoskeletal complaints Integumentary/Breasts: Skin/Breast: Reports system reviewed and no additional complaints, except as docu Neurologic: Reports system reviewed and no additional complaints, except as documented Psychiatric: Psychiatric: Reports no additional psychiatric complaints Endocrine: Endocrine: Reports no additional endocrine complaints Hematologic/Lymphatic: Hematologic/Lymphatic: Reports no additional hematologic/lymphatic complaints Allergic/Immunologic: Allergic/Immunologic: Reports no additional allergic/immunologic complaints PMFSH Social History Social History Smoking status: Former smoker Tobacco type: cigarettes Substance use: former Substance use type: crack/cocaine and IV drugs Exam 2 Const: General: healthy appearing Nutritional Appearance: well nourished Limitations: other limitations (Baseline dementia) HENMT: Head: normal to inspection Ears: external ears normal F mariza/Nose/Sinus: Normal external nose present Eyes: Conjunctivae: conjunctivae normal Pupils: Equal, round and reactive pupils present EOM: EOMs intact bilaterally Neck: Neck: normal visual inspection Chest: Chest palpation & inspection: normal inspection of the chest Resp: Effort & Inspection: normal respiratory effort and not labored A uscultation: clear to auscultation bilaterally and no crackles Cardio: Rate: regular rate Rhythm: regular rhythm Heart sounds: no murmurs GI: Inspection: non-distended GI Palp: Yes Soft to palpation and No Tenderness to palpation present (GI) Auscultation: normal bowel sounds : General: Yes bladder normal to palpation Back/Spine/Pelvis: Back: no CVA tenderness Skin: General skin exam: normal color Rashes: no rashes Wounds: no wounds Neuro: General: moves all extremities, no meningeal signs and no focal motor deficits Speech: normal speech Other: Fast exam negative, NIH is 0, GCS is 15 Extrem: General: normal to inspection, no clubbing, cyanosis or edema and no pedal edema Psych: Affect: Anxious affect present Course Vital Signs Vital signs: Vital Signs Temperature 36.7 C 01/02/25 20:30 Pulse Rate 84 01/02/25 20:30 Respiratory Rate 16 01/02/25 20:30 Blood Pressure 164/78 H 01/02/25 20:30 Pulse Oximetry 99 01/02/25 20:30 Oxygen Delivery Room Air 01/02/25 20:30 Temperature 36.7 C 01/02/25 20:30 Pulse Rate 84 01/02/25 20:30 Respiratory Rate 16 01/02/25 20:30 Blood Pressure 164/78 H 01/02/25 20:30 Pulse Oximetry 99 01/02/25 20:30 Oxygen Delivery Room Air 01/02/25 20:30 MDM - Fall MDM Narrative Medical decision making narrative: Patient is a 74-year-old female from the group home and had a ground level fall with a head injury. Appears this happens from time to time. CT scan and labs/UA workup at this time. Patient will be transferred back to nursing facility with a negative workup. She will need outpatient carotid ultrasound. Lab Data Attestation: I reviewed the patient's lab results. 01/02/25 21:06 10/08/25 21:06 Labs: Lab Results 01/02/25 Range/Units 21:06 WBC 5.5 (4.8-10.8) K/mm3 RBC 4.02 L (4.20-5.40) M/mm3 Hgb 10.4 L (11.7-13.8) g/dL Hct 33.9 L (35.0-42.0) % MCV 84.3 (78.0-102.0) fL MCH 25.9 L (27.0-31.0) pg MCHC 30.7 L (32-36) g/dL RDW 15.3 H (11.6-14.4) % Plt Count 176 (150-420) K/mm3 MPV 10.9 (9.2-11.8) fl Immature Gran % (Auto) 0.2 H (0.0-0.0) % Neut % (Auto) 31.5 L (50.0-70.0) % Lymph % (Auto) 55.8 H (18.0-42.0) % [place] % (Auto) 10.5 (2.0-11.0) % Eos % (Auto) 1.6 (1.0-6.0) % Baso % (Auto) 0.4 (0.0-1.0) % Lymph # (Auto) 3.09 (1.10-4.50) K/mm3 [place] # (Auto) 0.58 (0.10-0.90) K/mm3 Eos # (Auto) 0.09 (0.02-0.50) K/mm3 Baso # (Auto) 0.02 (0.00-0.10) K/mm3 Abs Immat Gran (auto) 0.01 H (0.00-0.00) K/mm3 Absolute Neuts (auto) 1.75 (1.70-7.20) K/mm3 Absolute Nucleated RBC 0.00 (0.00-0.00) K/mm3 Nucleated RBC % 0.0 (0-0.0) % Sodium 138 (137-145) mmol/L Potassium 4.2 (3.4-5.0) mmol/L Chloride 102 (98-107) mmol/L Carbon Dioxide 26 (22-30) mmol/L Anion Gap 10 (4-12) mmol/L BUN 11 (7-17) mg/dL Creatinine 0.54 L (0.7-1.0) mg/dL Estim Creat Clear Calc 68 ml/min Estimated GFR > 60 (59 - ) Glucose 275 H (65-110) mg/dL Calculated Osmolality 295 (285-295) mOsm/kg Calcium 9.6 (8.4-10.2) mg/dL Total Bilirubin 0.2 (0.2-1.3) mg/dL AST 17 (14-36) U/L ALT 10 (6-35) U/L Alkaline Phosphatase 95 (38-126) U/L Troponin I < 0.012 (0.000-0.034) ng/mL Total Protein 7.8 (6.3-8.2) g/dL Albumin 4.1 (3.5-5.1) g/dL Imaging Data Attestation: I personally reviewed and interpreted this imaging study as follows: Radiologist's impression: CT scan of the head was negative for acute process CT scan of cervical spine was negative for acute process and a right carotid artery needs further workup as an outpatient ECG Data EKG #1: Attestation: I personally reviewed and interpreted this ECG as follows: ECG completion date: 01/02/25 ECG completion time: 22:16 EKG Interpretation: normal rate, sinus rhythm, no ectopy, non-specific ST changes, normal QRS, normal QT and NL axis Discharge Plan Discharge Clinical Impression: Ground-level fall Closed head injury Qualifiers: Encounter type: initial encounter Qualified Code(s): S09.90XA - Unspecified injury of head, initial encounter Patient Disposition: Home Condition: Stable Instructions: Head Injury (ED) Patient Language: Vincentian Prescriptions: No Action levofloxacin 500 mg tablet 500 mg PO DAILY Qty: 7 0RF prednisone 20 mg tablet 40 mg PO DAILY 3 Days Qty: 6 0RF Follow-up/Referrals: Elver,Winston Baumann [Primary Care Provider] Time of Disposition: 22:17
--- NOTE | 2025-01-02 20:25 | ECG_ITS ---
Test Date: 2025-01-02 20:48:25 Measurements Intervals [place] Rate: 78 P: 69 NH: 132 QRS: 48 QRSD: 110 T: 199 QT: 361 QTc: 413 Interpretive Statements SINUS RHYTHM MODERATE T-WAVE ABNORMALITY, CONSIDER ANTEROLATERAL ISCHEMIA BASELINE ARTIFACT- V3-V4 ABNORMAL ECG Compared to ECG 11/10/2024 00:53:19 HEART RATE HAS DECREASED T-wave abnormality now present Possible ischemia now present Electronically Signed On 01-03-2025 08:29:52 CDT by Luis Miguel Hoyt D.O.
[2025-01-02 20:30] VITALS: BP 164/78; PULSE 84; RESP 16; TEMP 36.7; O2SAT 99
--- NOTE | 2025-01-02 21:06 | PC.NURSE ---
PATIENT LAYING ON STRETCHER IN ROOM. EKG IN PROGRESS. MANFRED WITH RADIOLOGY OUTSIDE ROOM
--- NOTE | 2025-01-02 21:07 | PC.NURSE ---
PATIENT BEING TRANSPORTED TO CT VIA STRETCHER
[2025-01-02 21:12] LABS: Hematocrit 33.9 % (35.0-42.0); Hemoglobin 10.4 g/dL (11.7-13.8); Immature Granulocyte Percent A 0.2 % (0.0-0.0); Lymphocytes Absolute Auto 3.09 K/mm3 (1.10-4.50); Mean Corpuscular HGB Conc 30.7 g/dL (32-36); Mean Corpuscular Hemoglobin 25.9 pg (27.0-31.0); Mean Corpuscular Volume 84.3 fL (78.0-102.0); Nucleated Red Blood Cells Absolute Auto 0.00 K/mm3 (0.00-0.00); Nucleated Red Blood Cells Perc 0.0 % (0-0.0); Platelet Count Result 176 K/mm3 (150-420); Red Blood Count 4.02 M/mm3 (4.20-5.40); White Blood Count 5.5 K/mm3 (4.8-10.8)
[2025-01-02 21:26] LABS: Alanine Aminotransferase 10 U/L (6-35); Albumin Level 4.1 g/dL (3.5-5.1); Alkaline Phosphatase 95 U/L (38-126); Anion Gap 10 mmol/L (4-12); Aspartate Amino Transferase 17 U/L (14-36); Bilirubin,Total 0.2 mg/dL (0.2-1.3); Blood Urea Nitrogen 11 mg/dL (7-17); Calcium 9.6 mg/dL (8.4-10.2); Carbon Dioxide 26 mmol/L (22-30); Chloride 102 mmol/L (98-107); Estimated CRCL calculation 68 ml/min; Estimated Glomerular Filt Rate > 60; Glucose 275 mg/dL (65-110); Osmolality Calculated 295 mOsm/kg (285-295); Potassium 4.2 mmol/L (3.4-5.0); Sodium 138 mmol/L (137-145); Total Protein 7.8 g/dL (6.3-8.2)
[2025-01-02 21:37] LABS: Troponin I < 0.012 ng/mL (0.000-0.034)
--- NOTE | 2025-01-02 21:47 | PC.NURSE ---
PATIENT IS RESTING ON STRETCHER. CURTAIN REMAINS OPEN FOR BETTER VISUALIZATION. CALL LIGHT IN REACH. CLOSE TO NURSES STATION.
--- NOTE | 2025-01-02 22:20 | PC.NURSE ---
ATTEMPTED TO GIVE REPORT TO NURSE AT [facility]. NURSE IS CURRENTLY IN A ROOM. LEFT PHONE NUMBER FOR NURSE TO CALL THIS RN BACK
--- NOTE | 2025-01-02 22:46 | PC.NURSE ---
ATTEMPTED TO CALL REPORT TO [facility]. NO ANSWER. PATIENT IS RESTING ON STRETCHER. CALM AND COOPERATIVE.
--- NOTE | 2025-01-02 22:52 | PC.NURSE ---
CALL PLACED TO [facility]. NO ANSWER. PATIENT BEING TRANSPORTED BACK TO FACILITY VIA WHEEL CHAIR AND DISCHARGE INSTRUCTIONS
[2025-01-02 22:55] VITALS: BP 158/76; PULSE 84; RESP 18; O2SAT 99
== END 2025-01-02 22:55 ==
PROVIDERS: Emergency Provider Emergency Medicine; PCP Internal Medicine
DX: S09.90XA Unspecified injury of head, initial encounter (principal); Z87.891 Personal history of nicotine dependence; W01.0XXA Fall on same level from slipping, tripping and stumbling without subsequent striking against object, initial encounter
CPT/HCPCS: 36415; 70450; 72125; 80053; 84484; 85025; 93005; 99284

== ENCOUNTER 2025-01-23 18:36 | Observation (INO) | payer BC, MEDICAID, SELFPAY ==
[2025-01-23] VITALS (16 sets, daily range): BP systolic 119–142; BP diastolic 57–69; PULSE 82; RESP 18; TEMP 37; O2SAT 93–98; BMI 31.2
--- NOTE | ~2025-01-23 | XR_ITS ---
XR pelvis 1-2V INDICATION: pain COMPARISON: None FINDINGS: AP view the pelvis demonstrate no acute fracture or dislocation. There is a surgical screw extending through the SI joints bilaterally. IMPRESSION: No acute fracture or dislocation. Reviewed, dictated and finalized at location S.
--- NOTE | ~2025-01-23 | XR_ITS ---
EXAMINATION: XR chest 2V DATE: 01/24/2025 13:52 INDICATION: Cough. TECHNIQUE: frontal and lateral views of the chest were obtained. COMPARISON: Chest radiograph dated 01/23/[address] dated 11/10/2024 FINDINGS: The lungs are clear with no focal airspace opacities, pulmonary edema, pleural effusion or pneumothorax. The cardiomediastinal silhouette is normal. Moderate degenerative skeletal changes in the spine and at both shoulders. IMPRESSION: 1. No acute cardiopulmonary disease. Reviewed, dictated and finalized at location A.
--- NOTE | ~2025-01-23 | CT_ITS ---
CT brain wo con HISTORY:Mental status changes COMPARISON: None. TECHNIQUE: Axial images were obtained of the head without intravenous contrast. FINDINGS: No acute intracranial hemorrhage, mass effect or midline shift. No extra-axial fluid collections. Encephalomalacia changes in the bilateral occipital lobes and cerebellar hemispheres reflective of remote infarct.Lacunar infarcts are noted within bilateral thalami and left basal ganglia.Visualized paranasal sinuses and mastoid air cells are clear. IMPRESSION: No acute intracranial hemorrhage or extra axial fluid collections. Chronic infarcts within bilateral occipital lobes and cerebellar hemispheres. Chronic lacunar infarcts in bilateral thalami and the left basal ganglia. All CT scans at this facility are performed using low dose modulation techniques as appropriate to perform exam including the following: automated exposure control; use of iterative reconstruction technique; adjustment of the mA and/or kV according to patient size (this includes techniques or standardized protocols for targeted exams where dose is matched to indication/reason for exam). Reviewed, dictated and finalized at location S. IMPRESSION: No acute intracranial hemorrhage or extra axial fluid collections. Chronic infarcts within bilateral occipital lobes and cerebellar hemispheres. Chronic lacunar infarcts in bilateral thalami and the left basal ganglia. All CT scans at this facility are performed using low dose modulation techniqu es as appropriate to perform exam including the following: automated exposure c ontrol; use of iterative reconstruction technique; adjustment of the mA and/or kV according to patient size (this includes techniques or standardized protocol s for targeted exams where dose is matched to indication/reason for exam).
--- NOTE | ~2025-01-23 | XR_ITS ---
XR chest 1V portable INDICATION:Altered mental status . REFERENCE: None FINDINGS: A single AP of the chest demonstrates normal heart size. Interstitial and groundglass opacities are present bilaterally. There is no evidence of pneumothorax or pleural effusion. IMPRESSION: Interstitial groundglass opacity bilaterally suggestive of pulmonary congestion. Reviewed, dictated and finalized at location S. IMPRESSION: Interstitial groundglass opacity bilaterally suggestive of pulmonary congestion .
--- NOTE | 2025-01-23 18:40 | ED.GENADULT ---
HPI - General Adult General Stated complaint: ELEVATED BLOOD SUGAR Source: patient Mode of arrival: EMS Related Data Allergies Allergy/AdvReac Type Severity Reaction Status Date / Time acetaminophen Allergy Unknown Unknown Verified 11/10/24 02:42 hydrocodone Allergy Unknown Unknown Verified 11/10/24 02:42 morphine Allergy Unknown Unknown Verified 11/10/24 02:42 tetracycline Allergy Unknown Unknown Verified 11/10/24 02:42 [facility] Social History Social History Smoking status: Former smoker Tobacco type: cigarettes Substance use: former Substance use type: crack/cocaine and IV drugs Discharge Plan Discharge Patient Language: Syriac Prescriptions: No Action levofloxacin 500 mg tablet 500 mg PO DAILY Qty: 7 0RF prednisone 20 mg tablet 40 mg PO DAILY 3 Days Qty: 6 0RF Follow-up/Referrals: Elver,Winston Baumann [Primary Care Provider]
--- NOTE | 2025-01-23 18:47 | ED.AMS ---
HPI - Altered Mental Status General Chief Complaint: Unspecified Stated Complaint: ELEVATED BLOOD SUGAR Source: patient and EMS Limitations: altered mental status History of Present Illness HPI narrative: 74-year-old female with a history of ex smoking, polysubstance abuse is [facility] with --decreased responsiveness. The patient is drowsy but arousable. --elevated blood sugar No other history is available. MD complaint: altered mental status Related Data Allergies Allergy/AdvReac Type Severity Reaction Status Date / Time acetaminophen Allergy Unknown Unknown Verified 11/10/24 02:42 hydrocodone Allergy Unknown Unknown Verified 11/10/24 02:42 morphine Allergy Unknown Unknown Verified 11/10/24 02:42 tetracycline Allergy Unknown Unknown Verified 11/10/24 02:42 [facility] Social History Social History Smoking status: Former smoker Tobacco type: cigarettes Substance use: former Substance use type: crack/cocaine and IV drugs Exam Narrative: Vitals are stable. Afebrile Const: Limitations: altered mental status Other: Patient is drowsy but arousable. She follows verbal commands and moves all her limbs. HENMT: Head: normal to inspection Ears: external ears normal Face/Nose/Sinus: Normal external nose present Face and sinus: normal facial exam Mouth: Yes Normal oral and palatal mucosa present Eyes: Conjunctivae: conjunctivae normal Pupils: Equal, round and reactive pupils present EOM: EOMs intact bilaterally Direct Ophthalmoscopy: no photophobia Neck: Neck: normal visual inspection, no lymphadenopathy and no meningeal signs Chest: Chest palpation & inspection: normal inspection of the chest Resp: Effort & Inspection: normal respiratory effort Auscultation: clear to auscultation bilaterally Cardio: Rate: regular rate Rhythm: regular rhythm GI: GI Palp: Yes Soft to palpation Auscultation: normal bowel sounds Other: No tenderness/rigidity/rebound. : General: Yes no CVA tenderness Back/Spine/Pelvis: Back: no CVA tenderness Skin: General skin exam: normal color Rashes: no rashes Wounds: no wounds Neuro: General: moves all extremities and no meningeal signs Other: Patient is very drowsy and difficult to arouse. Once she is awake she moves all her limbs on command. Extrem: General: normal to inspection, no clubbing, cyanosis or edema and no pedal edema Course Course Emergency Course: Patient was [facility] in [facility] for altered mental status. No other history is available. The patient had a CT of the head which revealed chronic infarcts within the bilateral occipital, cerebellar, bilateral thalamus and left basal ganglion. Patient had a negative urine drug screen. X-ray of the chest revealed bilateral ground-glass opacities. Patient had normal proBNP. The patient does not have any cough, sputum production or shortness of breath. Clinical examination of the chest is unremarkable. In ABG on room air was noted to be 734/49/52/82%. Patient has an oxygen saturation of 90% on room simultaneously. Patient was noted to have a lactate of 2.6. Chest x-ray does not show any acute infiltrates. UA is negative. Unable to get an IV access in spite of multiple attempts. Will give oral fluids which the patient is able to consume without any difficulty Will admit for monitoring her mental status. Chronic anemia Elevated blood sugars Vital Signs Vital signs: Vital Signs Temperature 37.0 C 01/23/25 18:40 Pulse Rate 82 01/23/25 18:40 Respiratory Rate 18 01/23/25 18:40 Blood Pressure 142/69 H 01/23/25 18:40 Pulse Oximetry 95 01/23/25 18:40 Oxygen Delivery Room Air 01/23/25 18:40 Temperature 37.0 C 01/23/25 18:40 Pulse Rate 82 01/23/25 18:40 Respiratory Rate 18 01/23/25 18:40 Blood Pressure 142/69 H 01/23/25 18:40 Pulse Oximetry 95 01/23/25 18:40 Oxygen Delivery Room Air 01/23/25 18:40 MDM - Altered Mental Status MDM Narrative Medical decision making narrative: Elevated blood sugars Chronic anemia Altered mental status Differential Diagnosis Differential diagnosis: Likely delirium and dementia Medical Records Attestation: I reviewed the patient's medical records. Lab Data Attestation: I reviewed the patient's lab results. 01/23/25 19:20 01/23/25 19:20 Labs: Lab Results 01/23/25 01/23/25 01/23/25 Range/Units 19:20 21:55 22:29 WBC 6.0 (4.8-10.8) K/mm3 RBC 4.08 L (4.20-5.40) M/mm3 Hgb 10.3 L (11.7-13.8) g/dL Hct 34.1 L (35.0-42.0) % MCV 83.6 (78.0-102.0) fL MCH 25.2 L (27.0-31.0) pg MCHC 30.2 L (32-36) g/dL RDW 14.9 H (11.6-14.4) % Plt Count 170 (150-420) K/mm3 MPV 11.0 (9.2-11.8) fl Immature Gran % (Auto) 0.2 H (0.0-0.0) % Neut % (Auto) 33.6 L (50.0-70.0) % Lymph % (Auto) 54.0 H (18.0-42.0) % [place] % (Auto) 10.6 (2.0-11.0) % Eos % (Auto) 1.3 (1.0-6.0) % Baso % (Auto) 0.3 (0.0-1.0) % Lymph # (Auto) 3.25 (1.10-4.50) K/mm3 [place] # (Auto) 0.64 (0.10-0.90) K/mm3 Eos # (Auto) 0.08 (0.02-0.50) K/mm3 Baso # (Auto) 0.02 (0.00-0.10) K/mm3 Abs Immat Gran (auto) 0.01 H (0.00-0.00) K/mm3 Absolute Neuts (auto) 2.02 (1.70-7.20) K/mm3 Absolute Nucleated RBC 0.00 (0.00-0.00) K/mm3 Nucleated RBC % 0.0 (0-0.0) % % Immature Plt Fraction 3.6 (1.0-7.0) % Sodium 136 L (137-145) mmol/L Potassium 4.4 (3.4-5.0) mmol/L Chloride 98 (98-107) mmol/L Carbon Dioxide 26 (22-30) mmol/L Anion Gap 12 (4-12) mmol/L BUN 9 (7-17) mg/dL Creatinine 0.43 L (0.7-1.0) mg/dL Estim Creat Clear Calc 94 ml/min Estimated GFR > 60 (59 - ) Glucose 340 H (65-110) mg/dL Calculated Osmolality 293 (285-295) mOsm/kg Lactic Acid 2.6 H 1.9 (0.4-2.0) mmol/L Calcium 9.7 (8.4-10.2) mg/dL Magnesium 1.7 (1.6-2.3) mg/dL Total Bilirubin 0.3 (0.2-1.3) mg/dL AST 19 (14-36) U/L ALT 12 (6-35) U/L Alkaline Phosphatase 99 (38-126) U/L Ammonia 27 (9-30) umol/L Total Creatine Kinase 160 H (30-135) U/L Troponin I < 0.012 (0.000-0.034) ng/mL NT-Pro-B Natriuret Pep < 20 (19.9-100) pg/mL Total Protein 6.9 (6.3-8.2) g/dL Albumin 4.3 (3.5-5.1) g/dL Lipase 153 (23-300) U/L TSH 2.560 (0.465-4.680) uIU/mL Urine Color Light yellow (Yellow) Urine Appearance Clear (Clear) Urine pH 6.0 (5.0-8.0) Ur Specific [place] <= 1.005 L (1.010-1.020) Urine Protein Negative (Negative) Urine Glucose (UA) 2+ H (Negative) Urine Ketones Negative (Negative) Ur Blood (Man) Negative (Negative) Urine Nitrate Negative (Negative) Urine Bilirubin Negative (Negative) Urine Urobilinogen 0.2 (0.2-1.0) mg/dL Leukocyte Esterase Rfl Negative (Negative) NARCISA/UL Salicylates < 1.0 L (2-20) mg/dL Urine Opiates Screen Pending Urine Methadone Screen Pending Acetaminophen < 10 L (10-30) ug/mL Ur Barbiturates Screen Pending Ur Phencyclidine Scrn Pending Ur Amphetamine Screen Pending U Benzodiazepines Scrn Pending Urine Cocaine Screen Pending U Cannabinoids Screen Pending Ethyl Alcohol < 10 (<10) mg/dL ABG Data ABG results: 01/23/25 19:25 Puncture Site Right radial ABG pH 7.34 L ABG pCO2 49.2 H ABG pO2 52.4 L ABG HCO3 25.7 ABG O2 Saturation 81.6 L ABG Base Excess -0.7 L Oxyhemoglobin 81.1 L O2 Delivery Device Room air O2 Liters/Min Not Reportable ECG Data EKG #1: ECG completion date: 01/23/25 ECG completion time: 19:02 Interpretation: Normal sinus rhythm. Normal axis. Extensive T-wave inversions. No ST elevation. Discharge Plan Discharge Clinical Impression: Chronic anemia Altered mental status Qualifiers: Altered mental status type: disorientation Qualified Code(s): R41.0 - Disorientation, unspecified Hyperglycemia due to type 2 diabetes mellitus Qualifiers: Diabetes mellitus intermediate insulin use: without intermediate use Qualified Code(s): E11.65 - Type 2 diabetes mellitus with hyperglycemia Patient Disposition: Acute Care [facility] Condition: Stable Patient Language: Slovenian Prescriptions: No Action levofloxacin 500 mg tablet 500 mg PO DAILY Qty: 7 0RF prednisone 20 mg tablet 40 mg PO DAILY 3 Days Qty: 6 0RF Follow-up/Referrals: Elver,Winston Baumann [Primary Care Provider] Time of Disposition: 22:42
--- NOTE | 2025-01-23 18:50 | ECG_ITS ---
Test Date: 2025-01-23 19:02:26 Measurements Intervals [place] Rate: 81 P: 73 CO: 151 QRS: 66 QRSD: 111 T: -77 QT: 343 QTc: 398 Interpretive Statements SINUS RHYTHM INTRAVENTRICULAR CONDUCTION DELAY CANNOT R/O SEPTAL INFARCT, AGE INDETERMINATE ST-T WAVE ABNORMALITY IN ANTEROLAT/INF LEADS- CONSIDER ISCHEMIA BASELINE WANDER- I, II, III, V6 ABNORMAL ECG Compared to ECG 01/02/2025 20:48:25 NO SIGNIFICANT CHANGE Electronically Signed On 01-23-2025 20:24:56 CDT by Luis Miguel Hoyt D.O.
--- NOTE | 2025-01-23 19:11 | PC.NURSE ---
REPORT TO KEILY ZHOU
[2025-01-23 19:32] LABS: Hematocrit 34.1 % (35.0-42.0); Hemoglobin 10.3 g/dL (11.7-13.8); Immature Granulocyte Percent A 0.2 % (0.0-0.0); Immature Platelet Fraction Pct 3.6 % (1.0-7.0); Lymphocytes Absolute Auto 3.25 K/mm3 (1.10-4.50); Mean Corpuscular HGB Conc 30.2 g/dL (32-36); Mean Corpuscular Hemoglobin 25.2 pg (27.0-31.0); Mean Corpuscular Volume 83.6 fL (78.0-102.0); Nucleated Red Blood Cells Absolute Auto 0.00 K/mm3 (0.00-0.00); Nucleated Red Blood Cells Perc 0.0 % (0-0.0); Platelet Count Result 170 K/mm3 (150-420); Red Blood Count 4.08 M/mm3 (4.20-5.40); White Blood Count 6.0 K/mm3 (4.8-10.8)
[2025-01-23 19:33] LABS: HCO3 ABG 25.7 mmol/L (23-29); Oxygen Saturation ABG 81.6 % (95-97); PCO2 ABG 49.2 mmHg (35-45); PO2 ABG 52.4 mmHg (75-85)
[2025-01-23 19:34] LABS: Site Drawn RIGHT RADIAL
[2025-01-23 19:46] LABS: Acetaminophen < 10 ug/mL (10-30); Ammonia 27 umol/L (9-30)
[2025-01-23 19:48] LABS: Salicylate < 1.0 mg/dL (2-20)
[2025-01-23 20:13] LABS: Alanine Aminotransferase 12 U/L (6-35); Anion Gap 12 mmol/L (4-12); Aspartate Amino Transferase 19 U/L (14-36); Bilirubin,Total 0.3 mg/dL (0.2-1.3); Blood Urea Nitrogen 9 mg/dL (7-17); Calcium 9.7 mg/dL (8.4-10.2); Carbon Dioxide 26 mmol/L (22-30); Chloride 98 mmol/L (98-107); Creatine Kinase 160 U/L (30-135); Estimated CRCL calculation 94 ml/min; Estimated Glomerular Filt Rate > 60; Glucose 340 mg/dL (65-110); Magnesium 1.7 mg/dL (1.6-2.3); Osmolality Calculated 293 mOsm/kg (285-295); Potassium 4.4 mmol/L (3.4-5.0); Sodium 136 mmol/L (137-145)
[2025-01-23 20:14] LABS: Albumin Level 4.3 g/dL (3.5-5.1); Alkaline Phosphatase 99 U/L (38-126); Lipase 153 U/L (23-300); Total Protein 6.9 g/dL (6.3-8.2); Troponin I < 0.012 ng/mL (0.000-0.034)
[2025-01-23 20:17] LABS: NT Pro B Type Natriuretic Pept < 20 pg/mL (19.9-100)
[2025-01-23 20:19] LABS: Thyroid Stimulating Hormone 2.560 uIU/mL (0.465-4.680)
[2025-01-23 22:33] LABS: Add Urine Microscopic? NO; Appearance Urine Clear (Clear); Glucose Urine UA 2+ (Negative); Leukocyte Esterase Ur Negative LEU/UL (Negative); Nitrate Urine Negative (Negative); Specific Grav Ur <= 1.005 (1.010-1.020)
[2025-01-23 22:52] LABS: Cannabinoid Screen Urine Negative (Negative)
--- NOTE | 2025-01-23 23:00 | PC.NURSE ---
unable to obtain IV access, multiple attempts by multiple RNs, unsuccessful. Patient also refusing any IV at this time. ERP aware, ERP ok to admit patient to floor for observation without IV access.
--- NOTE | 2025-01-23 23:42 | ADMGEN ---
This patient, Caprice Liu, was admitted to 2nd Floor Room 206-1. Patient/family oriented to hospital policies and general routines including ID bracelet, bed and alarms, visiting hours, pain management, procedures, bathroom and other care routines, personal items, smoking policy, room service/diet, and visiting hours. Patient is very KIANA, does not answer questions consistently. Telemetry applied. Explained use of bed alarm to prevent falls. Patient found at [facility] on floor. Information on how to activate the Rapid Response Team has been discussed. Patient/Family are encouraged to report perceived risks to care and to ask questions if they do not understand what they are told or what they should do.
[2025-01-24 04:00] VITALS: PULSE 73
--- NOTE | 2025-01-24 06:23 | PC.NURSE ---
States she does not want to go the bathroom or use BSC. Covered self back up. Adult brief is dry/intact.
[2025-01-24 08:00] VITALS: PULSE 74
[2025-01-24] MEDS: ASPIRIN 81 MG CHEWABLE TABLET PO (08:20)
[2025-01-24 08:30] VITALS: BP 148/74; PULSE 78; RESP 18; TEMP 36.1; O2SAT 92
[2025-01-24] MEDS: GABAPENTIN 400 MG CAPSULE 800 MG PO ×2 (09:21→12:01)
[2025-01-24] MEDS: CLOPIDOGREL BISULFATE 75 MG TABLET PO (09:21)
[2025-01-24 12:00] VITALS: BP 144/82; PULSE 84; RESP 18; TEMP 36.1; O2SAT 95
[2025-01-24] MEDS: INSULIN HUMAN LISPRO (*BKC) 1,000 UNITS/10 ML VIAL SUB-Q (12:00)
--- NOTE | 2025-01-24 13:49 | PM.IMHP ---
H&P: HPI History of Present Illness Date/Time: 01/24/25 13:49 [facility] Family History Family History (Updated 01/24/25 @ 00:36 by Rivka Watkins RN) Other Unknown family medical history Social History Social History Smoking status: Former smoker Tobacco type: cigarettes Second hand tobacco smoke exposure: No Alcohol intake: former Substance use: former Substance use type: crack/cocaine and IV drugs Other substance usage details: History cocaine/crack useage and IV drug abuse Spiritual care concerns: No Meds Home Medications and Allergies Home Medications ?Medication ?Instructions ?Recorded ?Confirmed ?Type albuterol sulfate 90 mcg/actuation 2 inh inhalation Q4H PRN shortness 01/23/25 01/23/25 History aerosol inhaler (Ventolin HFA) of breath or wheezing amitriptyline 50 mg tablet 50 mg PO HS 01/23/25 01/23/25 History aspirin 81 mg tablet 81 mg PO DAILY 01/23/25 01/23/25 History atorvastatin 80 mg tablet (Lipitor) 80 mg PO HS 01/23/25 01/23/25 History clopidogrel 75 mg tablet 75 mg PO DAILY 01/23/25 01/23/25 History gabapentin 800 mg tablet 800 mg PO TID 01/23/25 01/23/25 History insulin glargine 100 unit/mL (3 10 unit subcut QPM 01/23/25 01/23/25 History mL) subcutaneous pen (Lantus Solostar U-100 Insulin) insulin lispro 100 unit/mL 1 sliding scale dose subcut 01/23/25 01/23/25 History subcutaneous pen (Humalog KwikPen USEASDIRECTD (U-100) Insulin) lisinopril 10 mg tablet 10 mg PO DAILY 01/23/25 01/23/25 History Allergies Allergy/AdvReac Type Severity Reaction Status Date / Time acetaminophen Allergy Unknown Unknown Verified 01/23/25 23:52 hydrocodone Allergy Unknown Unknown Verified 01/23/25 23:52 morphine Allergy Unknown Unknown Verified 01/23/25 23:52 tetracycline Allergy Unknown Unknown Verified 01/23/25 23:52 Vital Signs Vital Signs - 24 hr 01/23/25 18:40 01/23/25 19:03 01/23/25 19:54 Temperature 98.6 F Pulse Rate 82 Respiratory Rate 18 Blood Pressure 142/69 H 130/59 L Pulse Oximetry 95 95 Oxygen Delivery Room Air 01/23/25 20:01 01/23/25 20:16 01/23/25 20:31 Temperature Pulse Rate Respiratory Rate Blood Pressure 139/66 133/58 L 129/57 L Pulse Oximetry Oxygen Delivery 01/23/25 20:46 01/23/25 20:47 01/23/25 21:00 Temperature Pulse Rate Respiratory Rate Blood Pressure 121/61 Pulse Oximetry 95 96 Oxygen Delivery 01/23/25 21:01 01/23/25 21:15 01/23/25 21:16 Temperature Pulse Rate Respiratory Rate Blood Pressure 122/62 124/60 Pulse Oximetry 96 96 95 Oxygen Delivery 01/23/25 21:30 01/23/25 21:31 01/23/25 21:53 Temperature Pulse Rate Respiratory Rate Blood Pressure 119/66 Pulse Oximetry 98 98 94 Oxygen Delivery 01/23/25 22:00 01/24/25 04:00 01/24/25 08:00 Temperature Pulse Rate 73 74 Respiratory Rate Blood Pressure Pulse Oximetry 93 Oxygen Delivery 01/24/25 08:30 01/24/25 12:00 01/24/25 12:00 Temperature 97 F L 97 F L Pulse Rate 78 84 84 Respiratory Rate 18 18 Blood Pressure 148/74 H 144/82 H Pulse Oximetry 92 95 Oxygen Delivery Room Air Room Air H&P: Results Labs Labs: Short CBC 01/23/25 Range/Units 19:20 WBC 6.0 (4.8-10.8) K/mm3 Hgb 10.3 L (11.7-13.8) g/dL Hct 34.1 L (35.0-42.0) % Plt Count 170 (150-420) K/mm3 BMP 01/23/25 19:20 Sodium 136 L Potassium 4.4 Chloride 98 Carbon Dioxide 26 BUN 9 Creatinine 0.43 L Glucose 340 H Calcium 9.7 Cardiac Enzymes 01/23/25 Range/Units 19:20 Total Creatine Kinase 160 H (30-135) U/L Troponin I < 0.012 (0.000-0.034) ng/mL Liver Function 01/23/25 Range/Units 19:20 Total Bilirubin 0.3 (0.2-1.3) mg/dL AST 19 (14-36) U/L ALT 12 (6-35) U/L Alkaline Phosphatase 99 (38-126) U/L Albumin 4.3 (3.5-5.1) g/dL Urine 01/23/25 Range/Units 22:29 Urine Color Light yellow (Yellow) Urine Appearance Clear (Clear) Urine pH 6.0 (5.0-8.0) Ur Specific [place] <= 1.005 L (1.010-1.020) Urine Protein Negative (Negative) Urine Glucose (UA) 2+ H (Negative)
--- NOTE | 2025-01-24 14:19 | P.SS_ITS ---
Same Day Admit/Disch: HPI History of Present Illness Chief complaint: ALTERED MENTAL STATUS HYPERGLYCEMIA Narrative: Caprice Liu is a 74 year old female with PMH of former smoker, polysubstance abuse, HLD, DM type 2, peripheral neuropathy. Patient was sent to the ER from her intermediate due to altered mental status and elevated blood sugar. In the ER the patient was very drowsy but would arouse and move her limbs on command. Head CT showed chronic infarcts within the bilateral occipital, cerebellar, bilateral thalamus and left basal ganglion. UDS was negative. CXR showed bilateral ground-glass opacities. ABG WNL. Labs showed lactate 2.6, UA is negative for infection. IV access was unable to be obtained in the ER. Repeat lactate 1.9. Patient was admitted for observation. [facility] Family History Family History Other Unknown family medical history Social History Social History Smoking status: Former smoker Tobacco type: cigarettes Second hand tobacco smoke exposure: No Alcohol intake: former Substance use: former Substance use type: crack/cocaine and IV drugs Other substance usage details: History cocaine/crack useage and IV drug abuse Spiritual care concerns: No Same Day Admit/Disch: Med Pre-admit Medications Home Medications ?Medication ?Instructions ?Recorded ?Confirmed ?Type albuterol sulfate 90 mcg/actuation 2 inh inhalation Q4 H PRN shortness 01/23/25 01/23/25 History aerosol inhaler (Ventolin HFA) of breath or wheezing amitriptyline 50 mg tablet 50 mg PO HS 01/23/25 History aspirin 81 mg tablet 81 mg PO DAILY 01/23/2512/27 History atorvastatin 80 mg tablet (Lipitor) 80 mg PO HS 01/23/25 History clopidogrel 75 mg tablet 75 mg PO DAILY 01/23/2512/27 History gabapentin 800 mg tablet 800 mg PO TID 01/23/2501/23 History insulin lispro 100 unit/mL 1 sliding scale dose subcut 01/23/25 01/23/25 History subcutaneous pen (Humalog KwikPen USEASDIRECTD (U-100) Insulin) lisinopril 10 mg tablet 10 mg PO DAILY 01/23/2512/27 History insulin glargine 100 unit/mL (3 13 unit (0.13 mL) subc ut QPM #3 mL 01/24/25 01/23/25 Rx mL) subcutaneous pen (Lantus Solostar U-100 Insulin) Review of Systems Review of Systems All systems reviewed & are unremarkable except as noted in HPI and below Exam Const: General: comfortable and no acute distress HENMT: Face/Nose/Sinus: Normal nares present Mouth: Yes moist mucous membranes Eyes: General: appearance normal, both eyes and all related structures Sclera: sclerae normal Neck: Neck: supple Resp: Effort & Inspection: normal respiratory effort Auscultation: clear to auscultation bilaterally and diminished lung sounds Cardio: Rate: regular rate Rhythm: regular rhythm GI: GI Palp: Yes Soft to palpation Auscultation: normal bowel sounds Skin: General skin exam: normal color and no rashes or lesions noted Neuro: Speech: normal speech Motor exam (neuro): 5/5 motor strength present throughout Sensory Exam: normal sensation Extrem: General: normal to inspection Psych: Mental Status: mental status grossly normal Affect: normal affect DS: Data Data Completed and Pending Labs on day of discharge: Labs from last 24 hours 01/24/25 01/24/25 01/23/25 11:57 07:53 22:29 WBC RBC Hgb Hct MCV MCH MCHC RDW Plt Count MPV Immature Gran % (Auto) Neut % (Auto) Lymph % (Auto) [place] % (Auto) Eos % (Auto) Baso % (Auto) Lymph # (Auto) [place] # (Auto) Eos # (Auto) Baso # (Auto) Abs Immat Gran (auto) Absolute Neuts (auto) Absolute Nucleated RBC Nucleated RBC % % Immature Plt Fraction Puncture Site ABG pH ABG pCO2 ABG pO2 ABG HCO3 ABG O2 Saturation ABG Base Excess Oxyhemoglobin O2 Delivery Device O2 Liters/Min Sodium Potassium Chloride Carbon Dioxide Anion Gap BUN Creatinine Estim Creat Clear Calc Estimated GFR Glucose POC Capillary Glucose 252 H 198 H Calculated Osmolality Lactic Acid Calcium Magnesium Total Bilirubin AST ALT Alkaline Phosphatase Ammonia Total Creatine Kinase Troponin I NT-Pro-B Natriuret Pep Total Protein Albumin Lipase TSH Urine Color Light yellow Urine Appearance Clear Urine pH 6.0 Ur Specific [place] <= 1.005 L Urine Protein Negative Urine Glucose (UA) 2+ H Urine Ketones Negative Ur Blood (Man) Negative Urine Nitrate Negative Urine Bilirubin Negative Urine Urobilinogen 0.2 Leukocyte Esterase Rfl Negative Salicylates Urine Opiates Screen Negative Urine Methadone Screen Negative Acetaminophen Ur Barbiturates Screen Negative Ur Phencyclidine Scrn Negative Ur Amphetamine Screen Negative U Benzodiazepines Scrn Negative Urine Cocaine Screen Negative U Cannabinoids Screen Negative Ethyl Alcohol 01/23/25 01/23/25 01/23/25 21:55 19:25 19:20 WBC 6.0 RBC 4.08 L Hgb 10.3 L Hct 34.1 L MCV 83.6 MCH 25.2 L MCHC 30.2 L RDW 14.9 H Plt Count 170 MPV 11.0 Immature Gran % (Auto) 0.2 H Neut % (Auto) 33.6 L Lymph % (Auto) 54.0 H [place] % (Auto) 10.6 Eos % (Auto) 1.3 Baso % (Auto) 0.3 Lymph # (Auto) 3.25 [place] # (Auto) 0.64 Eos # (Auto) 0.08 Baso # (Auto) 0.02 Abs Immat Gran (auto) 0.01 H Absolute Neuts (auto) 2.02 Absolute Nucleated RBC 0.00 Nucleated RBC % 0.0 % Immature Plt Fraction 3.6 Puncture Site Right radial ABG pH 7.34 L ABG pCO2 49.2 H ABG pO2 52.4 L ABG HCO3 25.7 ABG O2 Saturation 81.6 L ABG Base Excess -0.7 L Oxyhemoglobin 81.1 L O2 Delivery Device Room air O2 Liters/Min Not Reportable Sodium 136 L Potassium 4.4 Chloride 98 Carbon Dioxide 26 Anion Gap 12 BUN 9 Creatinine 0.43 L Estim Creat Clear Calc 94 Estimated GFR > 60 Glucose 340 H POC Capillary Glucose Calculated Osmolality 293 Lactic Acid 1.9 2.6 H Calcium 9.7 Magnesium 1.7 Total Bilirubin 0.3 AST 19 ALT 12 Alkaline Phosphatase 99 Ammonia 27 Total Creatine Kinase 160 H Troponin I < 0.012 NT-Pro-B Natriuret Pep < 20 Total Protein 6.9 Albumin 4.3 Lipase 153 TSH 2.560 Urine Color Urine Appearance Urine pH Ur Specific [place] Urine Protein Urine Glucose (UA) Urine Ketones Ur Blood (Man) Urine Nitrate Urine Bilirubin Urine Urobilinogen Leukocyte Esterase Rfl Salicylates < 1.0 L Urine Opiates Screen Urine Methadone Screen Acetaminophen < 10 L Ur Barbiturates Screen Ur Phencyclidine Scrn Ur Amphetamine Screen U Benzodiazepines Scrn Urine Cocaine Screen U Cannabinoids Screen Ethyl Alcohol < 10 Imaging Radiologist's impression: Ordering Physician: Yves Aguilera MD Date of Service: 01/23/25 Procedure(s): CT brain wo con Accession Number(s): [id number] cc: Yves Aguilera MD; ElverPastor M.D.~ CT brain wo con HISTORY:Mental status changes COMPARISON: None. TECHNIQUE: Axial images were obtained of the head without intravenous contrast. FINDINGS: No acute intracranial hemorrhage, mass effect or midline shift. No extra-axial fluid collections. Encephalomalacia changes in the bilateral occipital lobes and cerebellar hemispheres reflective of remote infarct.Lacunar infarcts are noted within bilateral thalami and left basal ganglia.Visualized paranasal sinuses and mastoid air cells are clear. IMPRESSION: No acute intracranial hemorrhage or extra axial fluid collections. Chronic infarcts within bilateral occipital lobes and cerebellar hemispheres. Chronic lacunar infarcts in bilateral thalami and the left basal ganglia. All CT scans at this facility are performed using low dose modulation techniques as appropriate to perform exam including the following: automated exposure control; use of iterative reconstruction technique; adjustment of the mA and/or kV according to patient size (this includes techniques or standardized protocols for targeted exams where dose is matched to indication/reason for exam). Reviewed, dictated and finalized at location S. Ordering Physician: Yves Aguilera MD Date of Service: 01/23/25 Procedure(s): XR chest 1V portable Accession Number(s): [id number] cc: Yves Aguilera MD; QuintinPastor M.D.~ XR chest 1V portable INDICATION:Altered mental status . REFERENCE: None FINDINGS: A single AP of the chest demonstrates normal heart size. Interstitial and groundglass opacities are present bilaterally. There is no evidence of pneumothorax or pleural effusion. IMPRESSION: Interstitial groundglass opacity bilaterally suggestive of pulmonary congestion. Reviewed, dictated and finalized at location S. DS: Summary Hospital Course Reason for hospitalization: altered mental status Hospital Course: Caprice Liu is a 74 year old female with PMH of former smoker, polysubstance abuse, HLD, DM type 2, peripheral neuropathy. Patient was sent to the ER from her intermediate due to altered mental status and elevated blood sugar. In the ER the patient was very drowsy but would arouse and move her limbs on command. Head CT showed chronic infarcts within the bilateral occipital, cerebellar, bilateral thalamus and left basal ganglion. UDS was negative. CXR showed bilateral ground-glass opacities. ABG WNL. Labs showed lactate 2.6, UA is negative for infection. IV access was unable to be obtained in the ER. Repeat lactate 1.9. Patient was admitted for observation. On exam this morning patient was awake and oreinted x 2-3. Patient reports no complaints. Patient's blood sugars are elevated, however patient does not follow a diabetic diet. Encouraged patient to follow a diabetic diet. Patient will be discharged back to the intermediate today. Time Spent with Patient Time attestation: Total time spent providing and/or coordinating discharge services: 25 Minutes DS: Admitting Diagnosis Discharge Date 01/24/2025 Admitting Diagnosis altered mental status DS: Discharge Diagnosis Discharge Diagnosis (1) Altered mental status: Qualifiers: Altered mental status type: disorientation Qualified Code(s): R41.0 - Disorientation, unspecified Code(s): R41.82 - Altered mental status, unspecified Status: Acute Assessment and Plan: s/p head CT with chronic findings, no acute findings noted UDS negative UA negative for infections CXR negative for infection elevated lactic acid 2.6, repeat 1.9 ER was unable to get iv access, patient was encouraged to drink PO fluids on exam this morning patient was awake and oriented x 2-3 discharge back to intermediate today (2) Hyperglycemia due to type 2 diabetes mellitus: Qualifiers: Diabetes mellitus superintendent container terminal insulin use: without superintendent container terminal use Qualified Code(s): E11.65 - Type 2 diabetes mellitus with hyperglycemia Code(s): E11.65 - Type 2 diabetes mellitus with hyperglycemia Status: Acute Assessment and Plan: accu checks avoid hypoglycemia SSI encourage patient to follow diabetic diet, patient is asking for candy from the nurses (3) Lactic acidosis: Code(s): E87.20 - Acidosis, unspecified Status: Acute Assessment and Plan: initial lactate was 2.6 ER was unable to get iv access, patient was encouraged to drink PO fluids repeat 1.9 resolved (4) HLD (hyperlipidemia): Code(s): E78.5 - Hyperlipidemia, unspecified Status: Acute Assessment and Plan: continue atorvastatin (5) Peripheral neuropathy: Code(s): G62.9 - Polyneuropathy, unspecified Status: Acute Assessment and Plan: continue gabapentin Discharge Plan Discharge Attending physician on discharge: Hua Mohan Consulting providers: Kori Lee; Luis Miguel Hoyt; Cinthya Wu Paul Discharging Clinician: Kori Lee Anticipated Discharge Date/Time: 01/24/25 14:17 Patient Disposition: NH Residential/Asst Living Activity: as tolerated Diet: diabetic Patient Instructions: Antibiotic Form, Insulin Glargine (By injection), Fall Prevention for Older Adults (ED), Diabetic Hyperglycemia (DC) Patient Language: Romanian Stand Alone Forms: General Discharge Information, Senior Living Discharge Follow-up/Referrals: Elver,Winston Baumann [Primary Care Provider] Referral Note: follow up with PCP within 1 week of discharge for further adjustment of diabetes medications Discharge Medications: Continued amitriptyline 50 mg tablet 50 mg PO HS atorvastatin [Lipitor] 80 mg tablet 80 mg PO HS clopidogrel 75 mg tablet 75 mg PO DAILY gabapentin 800 mg tablet 800 mg PO TID lisinopril 10 mg tablet 10 mg PO DAILY aspirin 81 mg tablet 81 mg PO DAILY albuterol sulfate [Ventolin HFA] 90 mcg/actuation HFA aerosol inhaler 2 inh inhalation Q4H PRN (Reason: shortness of breath or wheezing) insulin lispro [Humalog KwikPen Insulin] 100 unit/mL insulin pen 1 sliding scale dose subcut USEASDIRECTD Rx Instructions: inject as per sliding scale: if 241-290=1, 291-340=2, 341-400=3 call MD if over 400, subcutaneously before meals for DM Changed insulin glargine [Lantus Solostar U-100 Insulin] 100 unit/mL (3 mL) insulin pen 13 unit subcut QPM Qty: 3 0RF Date of admission: 01/23/25 22:44 Primary Care Provider: Elver,Pastor Admitting Provider: Hua Mohan Attending physician on admission: Hua Mohan Condition: Stable Quality VTE Prophylaxis VTE prophylaxis: mechanical ordered
--- NOTE | 2025-01-24 15:59 | PC.NURSE ---
4785 report called to [facility] staff. they are here with [facility]c and took her home.
--- NOTE | 2025-01-25 09:19 | PC.NURSE ---
Discharge call back complete, no questions from [facility] regarding discharge instructions
== END 2025-01-24 14:50 ==
LOC: CHSED 22:18 → CHS2ND 22:46
PROVIDERS: Admitting Provider Internal Medicine; Emergency Provider Internal Medicine Critical Care Medicine; PCP Internal Medicine; Visit Provider Internal Medicine
DX: E11.65 Type 2 diabetes mellitus with hyperglycemia (principal); D64.9 Anemia, unspecified; R41.0 Disorientation, unspecified; F19.10 Other psychoactive substance abuse, uncomplicated; Z87.891 Personal history of nicotine dependence; Z79.4 Long term (current) use of insulin; Z79.82 Long term (current) use of aspirin
CPT/HCPCS: 36415; 36600; 70450; 71045; 71046; 72170; 80053; 80143; 80179; 80307; 81003; 82077; 82140; 82550; 82805; 82948; 83605; 83690; 83735; 83880; 84443; 84484; 85025; 85055; 93005; 96374; 99285; A9270; G0378; J1815

== ENCOUNTER 2025-01-26 13:21 | Emergency (ER) | payer BC, MEDICAID, SELFPAY ==
[2025-01-26 13:21] VITALS: BP 174/76; PULSE 96; RESP 16; TEMP 36.6; O2SAT 91
--- NOTE | 2025-01-26 14:04 | PC.NURSE ---
1335 attempted to collect urine per straight cath. pt not responding when spoken to. when attempting to inform pt of cath placement. pt awake and yelling, i want to go home, dont touch my booty. attempts to explain procedure unsuccessful. pt yelling. reassurance given . 1340 attempted to assist lab staff for blood draw. pt yelling i want to go home, i dont need to do that , attempted to inform pt she was in the er for seizure activity, pt yelling i want to go home, i always have seizures, i dont need to have my blood drawn. attempting to get up out of bed. pt refusing all care, kicking and swinging arms. 1345 call placed to cheo sharpe, -- ex daughter in law-guardian. explained pt not cooperative with care. unable to do any testing . will observe at this time for further seizure activity.
--- NOTE | 2025-01-26 14:12 | ED_ITS ---
HPI - Seizure General Chief Complaint: Seizure Stated Complaint: seizure activity Source: patient and EMS Mode of arrival: EMS Limitations: physical limitation History of Present Illness HPI Narrative: This is a 74-year-old female with history of polysubstance abuse currently a [facility] patient had a shaking episode which [facility] staff believed to have been a seizure patient with no history of seizure disorders does have a history of diabetes and has been noncompliant with her medication although her blood sugars were around 160. Otherwise the patient is at her baseline refusing blood work refusing CT scan and is awake alert but currently resting comfortably not voice any acute distress no chest pain no shortness of breath no fever chills. complaint: possible seizure Onset (ago): hour(s) Related Data Home Medications ?Medication ?Instructions ?Recorded ?Confirmed ?Last Taken ?Type albuterol sulfate 90 mcg/actuation 2 inh inhalation Q4 H PRN shortness 01/23/25 01/23/25 Unknown History aerosol inhaler (Ventolin HFA) of breath or wheezing amitriptyline 50 mg tablet 50 mg PO HS 01/23/25 Unknown History aspirin 81 mg tablet 81 mg PO DAILY 01/23/2512/27 Unknown History atorvastatin 80 mg tablet (Lipitor) 80 mg PO HS 01/23/25 Unknown History clopidogrel 75 mg tablet 75 mg PO DAILY 01/23/2512/27 Unknown History gabapentin 800 mg tablet 800 mg PO TID 01/23/2501/23 Unknown History insulin lispro 100 unit/mL 1 sliding scale dose subcut 01/23/25 01/23/25 Unknown History subcutaneous pen (Humalog KwikPen USEASDIRECTD (U-100) Insulin) lisinopril 10 mg tablet 10 mg PO DAILY 01/23/2512/27 Unknown History Allergies Allergy/AdvReac Type Severity Reaction Status Date / Time acetaminophen Allergy Unknown Unknown Verified 01/23/25 23:52 hydrocodone Allergy Unknown Unknown Verified 01/23/25 23:52 morphine Allergy Unknown Unknown Verified 01/23/25 23:52 tetracycline Allergy Unknown Unknown Verified 01/23/25 23:52 Review of Systems Review of Systems: All systems reviewed & are unremarkable except as noted in HPI and below PMFSH Family History Family History Other Unknown family medical history Social History Social History Smoking status: Former smoker Tobacco type: cigarettes Second hand tobacco smoke exposure: No Alcohol intake: former Substance use: former Substance use type: crack/cocaine and IV drugs Other substance usage details: History cocaine/crack useage and IV drug abuse Spiritual care concerns: No Exam Const: General: no acute distress Nutritional Appearance: obese Orientation/consciousness: patient oriented x3 HENMT: Head: normal to inspection Eyes: Conjunctivae: conjunctivae normal Pupils: Equal, round and reactive pupils present Neck: Neck: normal visual inspection, no lymphadenopathy and no meningeal signs Resp: Effort & Inspection: normal respiratory effort Auscultation: clear to auscultation bilaterally Cardio: Rate: regular rate Rhythm: regular rhythm GI: GI Palp: Yes Soft to palpation Auscultation: normal bowel sounds Skin: General skin exam: normal color Neuro: General: patient oriented x3, moves all extremities, no meningeal signs and no focal motor deficits Extrem: General: normal to inspection, no clubbing, cyanosis or edema and no pedal edema Psych: Affect: Anxious affect present Course Course Emergency Course: Medical decision making narrative: The patient was evaluated by myself in the emergency department. History was obtained from medical records and partially from the pen patient and physical exam witnessed by nurse. External medical records were reviewed at this time. Patient is refusing a blood work refusing CT scanned. Patient is at her baseline and recently discharged from hospital 2 days ago. Repeat assessment: The patient is in no acute distress Symptoms are stable since arrival to the ED Repeat vitals are stable Or send patient back to the [facility] at her baseline. Advised follow-up with primary care physician within next 3 to 5 days further evaluation and treatment. Vital Signs Vital signs: Vital Signs Temperature 36.6 C 01/26/25 13:21 Pulse Rate 96 01/26/25 13:21 Respiratory Rate 16 01/26/25 13:21 Blood Pressure 174/76 H 01/26/25 13:21 Pulse Oximetry 91 01/26/25 13:21 Oxygen Delivery Room Air 01/26/25 13:21 Temperature 36.6 C 01/26/25 13:21 Pulse Rate 96 01/26/25 13:21 Respiratory Rate 16 01/26/25 13:21 Blood Pressure 174/76 H 11/01/25 13:21 Pulse Oximetry 91 01/26/25 13:21 Oxygen Delivery Room Air 01/26/25 13:25 Critical Care Time Critical Care Time Critical Care Time: No Discharge Plan Discharge Clinical Impression: Altered mental status Qualifiers: Altered mental status type: disorientation Qualified Code(s): R41.0 - Disorientation, unspecified Patient Disposition: NH Halfway/Asst Living Condition: Stable Instructions: Antibiotic Form, Altered Mental Status (ED) Additional Instructions: Advised to follow-up with primary care physician and encourage patient to take her medications as prescribed. Patient Language: Pashto Prescriptions: No Action amitriptyline 50 mg tablet 50 mg PO HS atorvastatin [Lipitor] 80 mg tablet 80 mg PO HS clopidogrel 75 mg tablet 75 mg PO DAILY gabapentin 800 mg tablet 800 mg PO TID lisinopril 10 mg tablet 10 mg PO DAILY aspirin 81 mg tablet 81 mg PO DAILY albuterol sulfate [Ventolin HFA] 90 mcg/actuation HFA aerosol inhaler 2 inh inhalation Q4H PRN (Reason: shortness of breath or wheezing) insulin lispro [Humalog KwikPen Insulin] 100 unit/mL insulin pen 1 sliding scale dose subcut USEASDIRECTD Rx Instructions: inject as per sliding scale: if 241-290=1, 291-340=2, 341-400=3 call MD if over 400, subcutaneously before meals for DM insulin glargine [Lantus Solostar U-100 Insulin] 100 unit/mL (3 mL) insulin pen 13 unit subcut QPM Qty: 3 0RF Follow-up/Referrals: Elver,Winston Baumann [Primary Care Provider] Stand Alone Forms: Long-Term Discharge Time of Disposition: 14:17
--- NOTE | 2025-01-26 14:18 | PC.NURSE ---
1400 attempted to discuss with pt about urine specimen, pt yelling i dont have to go, i want to go home. again attempted to explain to pt she was in the er for seizures. pt states i dont want to do all that , i want to go home. contacted guardian cheo, informed pt returning to prison. 1421 pt observed while in er, no seizure activity. spoke with prison staff. pt is at baseline and dr wray feels she can return to prison. 1429 spoke with jose and katherine, nurses at prison. awaiting staff to transport back to prison. pt is not currently taking any seizure medications. jose requesting prn medication for seizure. informed jose that dr walter needs to review medications for seizure medications.
[2025-01-26 14:33] VITALS: BP 183/76; PULSE 78; RESP 20; TEMP 37.1; O2SAT 97
== END 2025-01-26 15:24 ==
PROVIDERS: Emergency Provider Emergency Medicine; PCP Internal Medicine
DX: R41.0 Disorientation, unspecified (principal); E11.9 Type 2 diabetes mellitus without complications; Z79.4 Long term (current) use of insulin; Z79.899 Other long term (current) drug therapy; Z87.891 Personal history of nicotine dependence
CPT/HCPCS: 99281

== ENCOUNTER 2025-02-13 06:58 | Outpatient (NON) | payer BC, MEDICAID, SELFPAY ==
[2025-02-13 07:21] LABS: Hematocrit 34.6 % (35.0-42.0); Hemoglobin 10.1 g/dL (11.7-13.8); Immature Granulocyte Percent A 0.3 % (0.0-0.0); Immature Platelet Fraction Pct 3.3 % (1.0-7.0); Lymphocytes Absolute Auto 3.17 K/mm3 (1.10-4.50); Mean Corpuscular HGB Conc 29.2 g/dL (32-36); Mean Corpuscular Hemoglobin 25.3 pg (27.0-31.0); Mean Corpuscular Volume 86.7 fL (78.0-102.0); Nucleated Red Blood Cells Absolute Auto 0.04 K/mm3 (0.00-0.00); Nucleated Red Blood Cells Perc 0.6 % (0-0.0); Platelet Count Result 148 K/mm3 (150-420); Red Blood Count 3.99 M/mm3 (4.20-5.40); White Blood Count 6.7 K/mm3 (4.8-10.8)
[2025-02-13 07:37] LABS: Alanine Aminotransferase 12 U/L (6-35); Albumin Level 3.5 g/dL (3.5-5.1); Alkaline Phosphatase 95 U/L (38-126); Anion Gap 9 mmol/L (4-12); Aspartate Amino Transferase 24 U/L (14-36); Bilirubin,Total 0.3 mg/dL (0.2-1.3); Blood Urea Nitrogen 9 mg/dL (7-17); Calcium 9.4 mg/dL (8.4-10.2); Carbon Dioxide 24 mmol/L (22-30); Chloride 105 mmol/L (98-107); Cholesterol 171 mg/dL (0-200); Estimated Glomerular Filt Rate > 60; Glucose 196 mg/dL (65-110); HDL Direct 40 mg/dL; Osmolality Calculated 289 mOsm/kg (285-295); Potassium 4.3 mmol/L (3.4-5.0); Sodium 138 mmol/L (137-145); Total Protein 6.0 g/dL (6.3-8.2); Triglycerides 98 mg/dL (<150)
[2025-02-13 07:38] LABS: Hemoglobin A1C 10.0 % (<5.7)
== END 2025-02-13 06:59 | disposition home or self-care (01) ==
LOC: CHSLAB 07:02
PROVIDERS: PCP Internal Medicine; Visit Provider Internal Medicine
DX: I69.30 Unspecified sequelae of cerebral infarction (principal); E10.42 Type 1 diabetes mellitus with diabetic polyneuropathy; E78.5 Hyperlipidemia, unspecified
CPT/HCPCS: 36415; 80053; 80061; 83036; 85025; 85055

== ENCOUNTER 2025-02-14 18:31 | Emergency (ER) | payer BC, MEDICAID, SELFPAY ==
--- NOTE | ~2025-02-14 | XR_ITS ---
EXAMINATION: XR chest 1V portable DATE: 02/14/2025 19:10 INDICATION: Cough TECHNIQUE: A single frontal view of the chest was obtained. COMPARISON: Chest x-ray dated 01/24/2025 FINDINGS: Heart size is normal. Mild atherosclerotic aorta. Lungs are free of acute processes. IMPRESSION: 1. No acute findings. Reviewed, dictated and finalized at location T. [employer] IMPRESSION: 1. No acute findings.
[2025-02-14 18:31] VITALS: BP 133/63; PULSE 88; RESP 20; TEMP 36.7; O2SAT 95
--- NOTE | 2025-02-14 18:57 | PC.NURSE ---
ASSUMED CARE. REPORT RECEIVED FROM ALEJANDRA MICHAUD
--- NOTE | 2025-02-14 18:59 | PC.NURSE ---
1835 pt able to stand with minimal assist to toilet, urine collected. 1840 pt assisted to cot, with minimal assist of 1 staff.
[2025-02-14] MEDS: IPRATROPIUM 0.5 MG/ALBUTEROL SULFATE 2.5 MG (BASE) AMPUL.NEB 3 ML INHALATION (19:01)
--- NOTE | 2025-02-14 19:01 | PC.NURSE ---
report to pablito ambrocio.
--- NOTE | 2025-02-14 19:16 | PC.NURSE ---
LAB AT THE BEDSIDE.
--- NOTE | 2025-02-14 19:31 | ED.URI ---
HPI - URI/Sore Throat General Chief Complaint: Upper Respiratory Infection Stated Complaint: possible aspiration Time Seen by Provider: 02/14/25 18:49 Source: patient Mode of arrival: wheelchair Limitations: physical limitation History of Present Illness HPI Narrative: This is a 74-year-old jail patient with history of diabetes hypertension hyperlipidemia presents after jail staff bleed that she had aspirated, patient has a cough and chest congestion with no fevers vitals are stable saturations at 95% on room air no chest pain or shortness of breath patient is alert and responding appropriately with no abdominal pain no chest pain no shortness of breath no nausea vomiting no dysuria or hematuria. MD elicited complaint: cough Onset (ago): day(s) Consistency: constant Severity: mild Related Data Home Medications ?Medication ?Instructions ?Recorded ?Confirmed ?Last Taken ?Type albuterol sulfate 90 mcg/actuation 2 inh inhalation Q4H PRN shortness 01/23/25 01/23/25 Unknown History aerosol inhaler (Ventolin HFA) of breath or wheezing amitriptyline 50 mg tablet 50 mg PO HS 01/23/25 01/23/25 Unknown History aspirin 81 mg tablet 81 mg PO DAILY 01/23/25 01/23/25 Unknown History atorvastatin 80 mg tablet (Lipitor) 80 mg PO HS 01/23/25 01/23/25 Unknown History clopidogrel 75 mg tablet 75 mg PO DAILY 01/23/25 01/23/25 Unknown History gabapentin 800 mg tablet 800 mg PO TID 01/23/25 01/23/25 Unknown History insulin lispro 100 unit/mL 1 sliding scale dose subcut 01/23/25 01/23/25 Unknown History subcutaneous pen (Humalog KwikPen USEASDIRECTD (U-100) Insulin) lisinopril 10 mg tablet 10 mg PO DAILY 01/23/25 01/23/25 Unknown History Allergies Allergy/AdvReac Type Severity Reaction Status Date / Time acetaminophen Allergy Unknown Unknown Verified 01/23/25 23:52 hydrocodone Allergy Unknown Unknown Verified 01/23/25 23:52 morphine Allergy Unknown Unknown Verified 01/23/25 23:52 tetracycline Allergy Unknown Unknown Verified 01/23/25 23:52 Review of Systems Review of Systems: All systems reviewed & are unremarkable except as noted in HPI and below PMFSH Family History Family History Other Unknown family medical history Social History Social History Smoking status: Former smoker Tobacco type: cigarettes Second hand tobacco smoke exposure: No Alcohol intake: former Substance use: former Substance use type: crack/cocaine and IV drugs Other substance usage details: History cocaine/crack useage and IV drug abuse Spiritual care concerns: No Exam Const: General: no acute distress Nutritional Appearance: obese Limitations: no limitations HENMT: Head: normal to inspection Chest: Chest palpation & inspection: normal inspection of the chest Resp: Effort & Inspection: normal respiratory effort Auscultation: rhonchi Cardio: Rate: regular rate Rhythm: regular rhythm GI: GI Palp: Yes Soft to palpation Auscultation: normal bowel sounds : General: Yes bladder normal to palpation Skin: General skin exam: normal color Rashes: no rashes Wounds: no wounds Neuro: General: moves all extremities, no meningeal signs and no focal motor deficits Extrem: General: normal to inspection, no clubbing, cyanosis or edema and no pedal edema Course Course Emergency Course: Medical decision making narrative: Patient was evaluated by myself in the emergency department. History obtained from records from jail staff and from the patient who is a limited historian physical exam performed witnessed by nurse. External medical records were reviewed at this time. X-ray of the chest performed shows no acute cardiopulmonary abnormalities, patient received DuoNeb and 1g IM ceftriaxone for upper respiratory tract infection. Blood work reviewed. Repeat assessment patient doing well on repeat exam with no acute distress Symptoms have improved since arrival to the emergency department. Repeat vitals are stable Vital Signs Vital signs: Vital Signs Temperature 36.7 C 02/14/25 18:31 Pulse Rate 88 02/14/25 18:31 Respiratory Rate 20 02/14/25 18:31 Blood Pressure 133/63 02/14/25 18:31 Pulse Oximetry 95 02/14/25 18:31 Oxygen Delivery Room Air 02/14/25 18:31 Temperature 36.7 C 02/14/25 18:31 Pulse Rate 88 02/14/25 18:31 Respiratory Rate 20 02/14/25 18:31 Blood Pressure 133/63 02/14/25 18:31 Pulse Oximetry 95 02/14/25 18:31 Oxygen Delivery Room Air 02/14/25 18:35 Discharge Plan Discharge Clinical Impression: Upper respiratory infection Qualifiers: URI type: unspecified URI Qualified Code(s): J06.9 - Acute upper respiratory infection, unspecified Patient Disposition: NH Half-Way/Asst Living Condition: Stable Instructions: Antibiotic Form, Upper Respiratory Infection (ED) Additional Instructions: Advised patient to take medication as prescribed and follow-up with primary care physician within next 3 5 days further evaluation treatment. Patient Language: Finnish Prescriptions: No Action amitriptyline 50 mg tablet 50 mg PO HS atorvastatin [Lipitor] 80 mg tablet 80 mg PO HS clopidogrel 75 mg tablet 75 mg PO DAILY gabapentin 800 mg tablet 800 mg PO TID lisinopril 10 mg tablet 10 mg PO DAILY aspirin 81 mg tablet 81 mg PO DAILY albuterol sulfate [Ventolin HFA] 90 mcg/actuation HFA aerosol inhaler 2 inh inhalation Q4H PRN (Reason: shortness of breath or wheezing) insulin lispro [Humalog KwikPen Insulin] 100 unit/mL insulin pen 1 sliding scale dose subcut USEASDIRECTD Rx Instructions: inject as per sliding scale: if 241-290=1, 291-340=2, 341-400=3 call MD if over 400, subcutaneously before meals for DM insulin glargine [Lantus Solostar U-100 Insulin] 100 unit/mL (3 mL) insulin pen 13 unit subcut QPM Qty: 3 0RF Follow-up/Referrals: Elver,Winston Baumann [Primary Care Provider]
[2025-02-14 19:36] LABS: Hematocrit 35.2 % (35.0-42.0); Hemoglobin 10.0 g/dL (11.7-13.8); Immature Granulocyte Percent A 0.1 % (0.0-0.0); Lymphocytes Absolute Auto 3.53 K/mm3 (1.10-4.50); Mean Corpuscular HGB Conc 28.4 g/dL (32-36); Mean Corpuscular Hemoglobin 25.0 pg (27.0-31.0); Mean Corpuscular Volume 88.0 fL (78.0-102.0); Nucleated Red Blood Cells Absolute Auto 0.00 K/mm3 (0.00-0.00); Nucleated Red Blood Cells Perc 0.0 % (0-0.0); Platelet Count Result 195 K/mm3 (150-420); Red Blood Count 4.00 M/mm3 (4.20-5.40); White Blood Count 6.9 K/mm3 (4.8-10.8)
[2025-02-14 19:45] LABS: Add Urine Microscopic? NO; Appearance Urine Clear (Clear); Glucose Urine UA 3+ (Negative); Leukocyte Esterase Ur Negative LEU/UL (Negative); Nitrate Urine Negative (Negative); Specific Grav Ur 1.020 (1.010-1.020)
[2025-02-14 19:48] LABS: Alanine Aminotransferase 15 U/L (6-35); Albumin Level 4.2 g/dL (3.5-5.1); Alkaline Phosphatase 108 U/L (38-126); Anion Gap 10 mmol/L (4-12); Aspartate Amino Transferase 26 U/L (14-36); Bilirubin,Total 0.2 mg/dL (0.2-1.3); Blood Urea Nitrogen 7 mg/dL (7-17); Calcium 9.4 mg/dL (8.4-10.2); Carbon Dioxide 27 mmol/L (22-30); Chloride 100 mmol/L (98-107); Estimated CRCL calculation 90 ml/min; Estimated Glomerular Filt Rate > 60; Glucose 346 mg/dL (65-110); Magnesium 1.8 mg/dL (1.6-2.3); Osmolality Calculated 296 mOsm/kg (285-295); Potassium 4.2 mmol/L (3.4-5.0); Sodium 137 mmol/L (137-145); Total Protein 7.1 g/dL (6.3-8.2)
[2025-02-14 19:52] LABS: INR 0.9; Partial Thromboplastin Time 20.0 Sec (23.9-30.70); Prothrombin Time 9.9 Seconds (9.50-12.1)
[2025-02-14 19:57] LABS: NT Pro B Type Natriuretic Pept < 20 pg/mL (19.9-100)
[2025-02-14] MEDS: cefTRIAXone 1 GM, LIDOCAINE 1% LOCAL INJ 2.1 ML IM (19:58)
[2025-02-14 20:14] LABS: Influenza A QL RT-PCR Negative (Negative); Influenza B QL RT-PCR Negative (Negative); RSV RNA, RT-PCR Negative (Negative); SARS-CoV-2 RNA PCR Negative (Negative)
--- NOTE | 2025-02-14 20:18 | PC.NURSE ---
REPORT CALLED TO URVASHI AT [facility]. PATIENT HAS WHEEL CHAIR WITH HER CURRENTLY.
[2025-02-14 20:21] VITALS: BP 121/65; PULSE 85; RESP 20; TEMP 36.4; O2SAT 92
== END 2025-02-14 20:38 ==
PROVIDERS: Emergency Provider Emergency Medicine; PCP Internal Medicine
DX: J06.9 Acute upper respiratory infection, unspecified (principal); I10 Essential (primary) hypertension; E11.9 Type 2 diabetes mellitus without complications; E78.5 Hyperlipidemia, unspecified; Z87.891 Personal history of nicotine dependence; Z20.822 Contact with and (suspected) exposure to COVID-19
CPT/HCPCS: 36415; 71045; 80053; 81003; 83735; 83880; 85025; 85610; 85730; 87637; 96372; 99283; J0696; J2003